=== PATIENT | female | born 1990 | race Caucasian/White ===

== ENCOUNTER 2018-02-24 14:55 | Emergency (ER) | payer OTHER, SELFPAY ==
[2018-02-24 14:56] VITALS: BP 139/85; PULSE 109; RESP 18; TEMP 38.1; O2SAT 97; BMI 27.2
--- NOTE | 2018-02-24 15:53 | EKG12_ITS ---
Test Reason : CP/SOB Blood Pressure : / mmHG Vent. Rate : 084 BPM Atrial Rate : 084 BPM P-R Int : 130 ms QRS Dur : 080 ms QT Int : 378 ms P-R-T Axes : 071 037 019 degrees QTc Int : 446 ms Normal sinus rhythm Nonspecific T wave abnormality Confirmed by CHAPARRITA CHRIS, KEENAN ([id number]), editor & co founder AMOL ZHONG ([id number] on 02/27/2018 2:21:28 PM Referred By: Isidro Ferguson Confirmed By:KEENAN CHEATHAM MD
[2018-02-24] MEDS: 0.9% Normal Saline 1,000 ML 1000 ML IV (16:07)
[2018-02-24] MEDS: Ondansetron 4 MG/2 ML Vial IV (16:07)
[2018-02-24] MEDS: Ketorolac 30 MG/ML Syringe IV (16:07)
[2018-02-24 16:10] VITALS: PULSE 90; RESP 15; O2SAT 95
[2018-02-24 16:11] VITALS: O2SAT 95
--- NOTE | 2018-02-24 16:15 | RAD_ITS ---
STUDY: X-RAY CHEST REASON FOR EXAM: Female, 27 years old. Shortness of breath. TECHNIQUE: PA and lateral views of the chest. COMPARISON: None. FINDINGS: The lungs are clear and expanded. There is no demonstrated pleural abnormality. Normal size heart. Normal mediastinum and tiffanie. Normal visualized pulmonary arteries. Normal visualized aortic arch and descending thoracic aorta. Normal visualized thoracic spine. Normal visualized ribs, clavicles, and shoulders. There is no demonstrated abnormality of the visualized soft tissue structures of the upper abdomen. RAD/Chest PA and Lateral IMPRESSION: Normal x-ray examination of the chest. Electronically Signed: Rad Tinajero DO at 16:30 EDT Tel [phone], Service support ,
[2018-02-24 16:27] LABS: Absolute Lymphocyte Count 1.27 X10^3/ul (0.83-4.51); Absolute Neutrophil Count 11.5 X10^3/uL (2.0-7.7); Basophil# 0.01 X10^3/uL; Basophil% 0.1 % (0-1); Eosinophil# 0.04 X10^3/uL; Eosinophils% 0.3 % (0-5); Hematocrit 41.3 % (37-47); Hemoglobin 13.4 g/dl (12.0-15.0); Lymphocyte # 1.27 X10^3/ul (4.0); Lymphocyte % 9.1 % (19-41); Mean Corp Hgb Conc 32.4 g/gl (32-36); Mean Corpuscular Hgb 33.2 pg (27.0-32.0); Mean Corpuscular Volume 102.2 fL (81-99); Mean Platelet Vol. 10.6 fl (6.2-12.0); Monocyte# 1.12 X10^3/uL; Neutrophil % 82.4 % (47-70); Platelet Count 162 K/mm3 (150-450); RBC Distribution Width CV 12.2 % (11.6-14.6); RBC Distribution Width SD 45.8 fl (35.1-43.9); Red Blood Count 4.04 M/mm3 (4.2-5.4)
[2018-02-24 16:28] LABS: POSITIVE COUNT NO; POSITIVE DIFFERENTIAL NO; POSITIVE MORPHOLOGY NO
[2018-02-24 16:46] LABS: ALB/GLOB Ratio 1.1 RATIO (0.9-2.4); AST(SGOT) 11 U/L (15-37); Alanine Aminotransfer ALT/SGPT 14 U/L (13-56); Albumin, Serum 4.1 g/dL (3.2-5.0); Alkaline Phosphatase 45 U/L (45-117); Anion Gap 5 (5-15); BUN 16 mg/dL (7-18); BUN/Creat Ratio 17.5 RATIO (10-20); Calcium,Total 8.5 mg/dL (8.5-10.1); Chloride 108 mmol/L (98-107); Creatinine, Serum 0.91 mg/dL (0.55-1.02); EST Glomerular Filtration Rate 78 mL/min (>60); Est Glom Filt Rate - Afr Amer 95 mL/min (>60); Estimated Creatinine Clearance 86.93 ml/min; Globulin 3.6 g/dL (2.2-4.2); Glucose 103 mg/dL (74-106); Lipase 149 U/L (73-393); Protein, Total 7.7 g/dL (6.4-8.2); Sodium Level 141 mmol/L (136-145)
[2018-02-24 17:48] LABS: Red Blood Cells-Urine 0 SEEN /hpf (0-5)
[2018-02-24 17:51] LABS: Color, Urine Yellow (Yellow); Glucose, Dipstick 250 mg/dl (Normal); Ketone-Dipstick 5 mg/dl (Negative); Leukocyte Esterase-Dipstick Negative /ul (Negative); Nitrite-Dipstick Negative (Negative); Occult Blood-Urine 150 /ul (Negative); Protein-Dipstick 15 mg/dl (Negative); Specific Gravity, Urine 1.025 (1.002-1.030); Urine Bilirubin Dipstick Negative (Negative); Urine Clarity Sl. Cloudy (Clear); Urine Urobilinogen Normal (Normal)
[2018-02-24 17:55] LABS: Internal QC Validated? YES +Cl - CLEAR BKGD; Pregnancy, Urine Negative Negative
[2018-02-24 18:09] LABS: D-Dimer Quantitative (DVT/PE) < 0.27 FEU/ug/m (0.27-0.49)
[2018-02-24 18:14] LABS: Squamous Epithelial Cells - UA 5-10 SEEN /hpf (5-10)
[2018-02-24 18:15] LABS: Bacteria RARE /hpf (None Seen); Mucous, Urine 1+ /hpf (<or=2+); White Blood Cells 0-5 SEEN /hpf (0-5)
[2018-02-24 21:06] LABS: Color, Urine Yellow (Yellow); Glucose, Dipstick 100 mg/dl (Normal); Ketone-Dipstick 5 mg/dl (Negative); Leukocyte Esterase-Dipstick 25 /ul (Negative); Nitrite-Dipstick Negative (Negative); Occult Blood-Urine 50 /ul (Negative); Protein-Dipstick 30 mg/dl (Negative); Specific Gravity, Urine 1.025 (1.002-1.030); Urine Bilirubin Dipstick Negative (Negative); Urine Clarity Sl. Cloudy (Clear); Urine Urobilinogen 1 mg/dl (Normal)
[2018-02-24 21:18] LABS: Red Blood Cells-Urine 0-5 SEEN /hpf (0-5); Squamous Epithelial Cells - UA 0-5 SEEN /hpf (5-10); White Blood Cells 5-10 SEEN /hpf (0-5)
[2018-02-24 21:19] LABS: Bacteria RARE /hpf (None Seen); Mucous, Urine RARE /hpf (<or=2+)
--- NOTE | 2018-02-25 00:46 | ED.RN ---
please see computer down time charting from [id number] to [id number]
--- NOTE | 2018-02-25 01:09 | ED.VISSUMM ---
- ER Visit Summary Date of Service: 02/25/18 Chief Complaint: Shortness of breath History of Present Illness: The patient is a 27 F who states that she feels like she cannot catch her breath. She woke at approximately 0900 hours. The time she had a slight headache and a bit of a sore throat. She went back to sleep when she woke she had a sharp pain that was sharp on the left side of her chest. She states that her headache and sore throat felt better but her throat felt more swollen now. She states she feels better laying down. She notes nausea upon arrival in the emergency department. She tried an inhaler that she had at home after a bout of bronchitis in the past which did not help. No reported fevers. She takes Lexapro for depression. She is a smoker. She denies any urinary symptoms. Physical Examination: Temperature 100.5 in triage. Oral temperature taken by physician is 99.1. Heart rate 109 respiratory rate of 18 pulse ox is 97% on room air. Blood pressure 139/85 Gen: Well-nourished well-developed patient clinically appears well Head: Normocephalic atraumatic Eyes: Perrl EOMI ENT: TMs clear clear rhinorrhea moist mucous membranes no oral pharyngeal erythema Neck: Supple no lymphadenopathy no JVD nontender CVS: Regular rate rhythm no murmurs normal S1-S2 Respiratory: No distress clear to auscultation bilaterally mild left anterior chest wall tenderness Abdomen: Soft nontender nondistended normal bowel sounds no masses Back: Nontender no CVA tenderness Extremity: Nontender no edema Skin: Normal color no rash Neuro: alert orientated ?3 CN II-XII intact normal strength sensation reflexes gait cerebellar Psych: Normal affect normal mood Test Results: White count of 14 with 82.4 neutrophils. Influenza negative. Chemistries liver negative. D-dimer negative troponin negative. test negative. EKG sinus at a rate of 84. Chest x-ray negative. Patient provided an initial urine specimen. When I reviewed this the initial specimen was essentially negative. Gross examination shows it to be extremely cloudy almost Tuesday. Gave the patient a liter of fluids and asked to repeat the urine. When I did this the urine was significantly better at 5-10 white cells and rare bacteria. Nitrate positive and blood positive. I have asked for a culture. I am going to place the patient on Keflex. I think a lot of her symptoms are viral in nature. Given the urine discrepancies is reasonable to cover her. Return if worsening. Impression: 1. Viral syndrome 2. Urinary tract infection This note was generated with [employer] dictation software. It may contain incorrect words, spelling, and punctuation that were not noted in review of the chart prior to signing ED Disposition - Plan for ED Patient: Disposition: Home or Assisted Living Chief Complaint: Shortness of Breath Referrals: Tiana Crenshaw MD [Primary Care Provider] -
== END 2018-02-24 22:30 | disposition home or self-care (01) ==
PROVIDERS: Emergency Provider Emergency Medicine; Family Provider Internal Medicine; PCP Internal Medicine
DX: B34.9 Viral infection, unspecified (principal); N39.0 Urinary tract infection, site not specified; R06.02 Shortness of breath; J02.9 Acute pharyngitis, unspecified; R51 Headache; F32.9 Major depressive disorder, single episode, unspecified; F17.210 Nicotine dependence, cigarettes, uncomplicated; Z79.899 Other long term (current) drug therapy
CPT/HCPCS: 71046; 80053; 81001; 81025; 83690; 84484; 85025; 85379; 87086; 87088; 87804; 93005; 96374; 96375; 99282; 99285; J7030; A4216; J2405

== ENCOUNTER → 2018-02-28 14:25 | Outpatient (CLI) | payer OTHER, SELFPAY ==
[2018-02-28 14:47] LABS: ALB/GLOB Ratio 1.1 RATIO (0.9-2.4); AST(SGOT) 14 U/L (15-37); Alanine Aminotransfer ALT/SGPT 25 U/L (13-56); Albumin, Serum 3.7 g/dL (3.2-5.0); Alkaline Phosphatase 41 U/L (45-117); Anion Gap 7 (5-15); BUN 11 mg/dL (7-18); BUN/Creat Ratio 14.5 RATIO (10-20); Calcium,Total 8.9 mg/dL (8.5-10.1); Chloride 106 mmol/L (98-107); Creatinine, Serum 0.76 mg/dL (0.55-1.02); EST Glomerular Filtration Rate 96 mL/min (>60); Est Glom Filt Rate - Afr Amer 117 mL/min (>60); Globulin 3.5 g/dL (2.2-4.2); Glucose 78 mg/dL (74-106); Potassium 3.8 mmol/L (3.5-5.1); Protein, Total 7.2 g/dL (6.4-8.2); Sodium Level 141 mmol/L (136-145)
== END ==
PROVIDERS: Family Provider Internal Medicine; PCP Internal Medicine; Visit Provider Internal Medicine
DX: B34.9 Viral infection, unspecified (principal); E86.0 Dehydration; Z87.440 Personal history of urinary (tract) infections
CPT/HCPCS: 80053

== ENCOUNTER 2018-05-24 12:47 | Emergency (ER) | payer OTHER, SELFPAY ==
[2018-05-24 12:48] VITALS: BP 149/83; PULSE 111; RESP 15; TEMP 36.9; O2SAT 100; BMI 25.6
--- NOTE | 2018-05-24 13:07 | ED.VISSUMM ---
- ER Visit Summary Date of Service: 05/24/18 Chief Complaint: Right leg numbness History of Present Illness: The patient is a 27 F who states that she went to bed last night feeling fine. When she woke up this morning she felt like her distal right leg and foot was asleep. She states it was rather pins and needles. But as she walked down the hallway she noted that it felt like her foot was dropping behind her. She states now just feels numb. She states that it is all the way around the leg all the way around the foot starting just below the knee. Typically sleeps on her back. She does not recall sleeping in abnormal position last night. Physical Examination: Afebrile vital signs are stable Gen: Well-nourished well-developed Head: Normocephalic atraumatic Eyes: Perrl EOMI ENT: TMs clear no rhinorrhea moist mucous membranes Neck: Supple no lymphadenopathy no JVD nontender CVS: Regular rate rhythm no murmurs normal S1-S2 Respiratory: No distress clear to auscultation bilaterally chest nontender Abdomen: Soft nontender nondistended normal bowel sounds no masses Back: Nontender Extremity: Nontender no edema Skin: Normal color no rashr Psych: Normal affect normal mood Neuro: alert orientated ?3 CN II-XII intact patient reports decreased sensation of the right leg and foot. She does feel sharp and pressure. She is able to dorsi and plantar flex. Initially she is not able to show me anything but when I point out that she is actually doing at she is unable to do some of the motion though more weaker than the left. Vasculature appears normal on physical exam Emergency Department Course and Treatment: This most likely is a neurapraxia probably due to the peroneal nerve and should resolve. She is going to wear supportive ankle wear and cane if need be.. She will follow-up with urology if not improving. Impression: 1. Right leg neuropraxia This note was generated with [employer] dictation software. It may contain incorrect words, spelling, and punctuation that were not noted in review of the chart prior to signing ED Disposition - Plan for ED Patient: Disposition: Home or Assisted Living Chief Complaint: Numb/Ting Instructions: ED Palsy Peroneal Nerve Referrals: Wang Sewell MD [STAFF PHYSICIAN] - 1 Week if not improving
[2018-05-24 13:16] VITALS: BP 119/91; RESP 17
[2018-05-24 13:17] VITALS: BP 119/91; RESP 17
== END 2018-05-24 13:31 | disposition home or self-care (01) ==
PROVIDERS: Emergency Provider Emergency Medicine; Family Provider Internal Medicine; PCP Internal Medicine
DX: S84.91XA Injury of unspecified nerve at lower leg level, right leg, initial encounter (principal); X58.XXXA Exposure to other specified factors, initial encounter; Y93.9 Activity, unspecified; Y92.9 Unspecified place or not applicable; Y99.9 Unspecified external cause status; F32.9 Major depressive disorder, single episode, unspecified; F41.9 Anxiety disorder, unspecified; Z79.899 Other long term (current) drug therapy
CPT/HCPCS: 99282

== ENCOUNTER → 2018-10-17 20:07 | Outpatient (CLI) | payer OTHER, SELFPAY | LOC: SL 20:07 | PROVIDERS: Family Provider Family Medicine; PCP Family Medicine; Visit Provider Family Medicine | DX: G47.10 Hypersomnia, unspecified (principal) | CPT/HCPCS: 95810 ==

== ENCOUNTER 2020-04-24 09:00 | Outpatient (RCR) | payer OTHER, SELFPAY ==
--- NOTE | 2020-04-24 09:03 | BH.SGPN.GN ---
Behaviors/Verbalizations/Mental Status: [] Client alert and oriented, casually dressed. Eye contact good. Motor activity appropriate. Speech within normal limits. Affect congruent, mood depressed, anxious. Thoughts linear, logical, no signs of hallucinations or delusions. Reviewed client?s symptom tracker, no risk for suicidal ideation, plan, or intent as of 04/24/20. Client Response/Progress/Benefit: []Client first day in IOP program, remained attentive and was willing to share with the group. Reports feeling anxious today as she has not previously done group counseling and is nervous about what to expect. Notes that this is a current stressor for her but that she knows continuing to ignore self-care and not address her mental health needs with become an even greater source of stress long-term. Client receptive of and appeared to benefit from support and encouragement from the group. Did well to identify a current mental health win which included stepping outside her comfort zone and asking for help via seeking mental health treatment. Noted goals for IOP treatment include improving self-care and self-confidence. Progress not noted as client new to program. Will continue IOP tx to prevent decompensation, improve mood stability, and promote healthy mental health sx management. Narrative Note: []
--- NOTE | 2020-04-24 10:17 | BH.SGPN.GN ---
Behaviors/Verbalizations/Mental Status: []Eye contact is good. Motor activity is appropriate. Appearance is neat and clean. Speech is Appropriate. Mood is anxious. Affect is unable to gather due to wearing a mask for COIVD-19 protocol. Thoughts are linear and logical. No evidence of psychosis. Client Response/Progress/Benefit: []Client was passive during discussion, taking notes. Client more engaged during activity and was laughing. Client listened as peers worked on defining what goals are. Brainstormed with the group the benefits of goal setting which included: increased motivation, sense of accomplishment, increased confidence, growth, and purpose. Client attentive as the group discussed the barriers that keep people from either setting goals are following through with goals. Attentive during psychoeducation on SMART goals. Engaged in activity and did well to provide ideas and listen to peers. Client appeared to benefit from learning the mental health benefits of setting goals that are SMART. Will continue IOP tx to prevent decompensation, improve daily functioning, and increase healthy coping skills. Narrative Note: []
--- NOTE | 2020-04-30 09:53 | BH.NA ---
Physical Data - Vital Signs Pulse Rate: 76 Blood Pressure: 118/62 - Height/Weight Height: 1.68 m - stated Weight:: 73.936 kg - Actual Weight in Pounds: 163.0 lbs Nutritional History - Appetite Nutritional Instructions:: If client shows signs of a swallowing problem, weight change of 10 pounds or more in the last month, or is on a diabetic diet, the physician will review and request a dietitian consult, as appropriate. All unintentional weight loss will be referred to the physician for decision on need for dietitian consult. Describe your appetite:: Poor Have you noticed a change in your eating habits lately?: Yes - Client states that she has had a decreased appetite with recent weight loss Functional Assessment - Sleep Pattern Describe any problems with sleeping: Client states she has been getting approximately 8-10 hours of sleep nightly that is broken. - Activities Motor Activity:: Functional Sensory/Communication Assess - Communication Problems Do you have difficulty understanding what people are saying?: No Medical Problems/History - Respiratory Conditions Respiratory: Other (See comments) - Client states that she had a sleep apnea test approx 2yrs ago and has sleep apnea but does not need a CPAP - Additional History Additional comments:: Client states that she has a h/o Depression Surgical History - Surgical History Have you had any surgeries? If so, list type and date:: No Substance Abuse - Substance Abuse Please describe substance abuse in the last 30 days:: Client states that she drinks 1-3 drinks approximately 1-3 times/week consisting of either beer or wine. Client states past tobacco use- smoked 1/2PPD [id number], quit approx 1.5yrs ago but vaped and quit the vape about 6 weeks ago. Client denies past or current substance use. Client states consumes caffiene approximately once every couple of days, consisting of energy drinks. Mental Status Summary - Mental Status Significant Findings/Observations on Appearance and Mood:: Client is alert and oriented x4. Client is casually groomed . Client is cooperative during assessment, makes good eye contact during conversation. Client's speech with normal rate and volume, coherent and spontaneous. Client appears moderately depressed and mildly anxious during assessment. Client appears with some Anhedonia present. Client makes logical associations, normal processing. Client denies delusions and hallucinations, none evident. Client appears with good insight and judgement. Suicide Assessment - Suicidal Ideation Are you currently or have you been suicidal in the past?: Yes - Client denies current SI/HI, states SI in the past. Suicidal Intentional Rating Scale (SIRS): Suicidal thoughts (past) Physician Notification: If Active suicidal thoughts/Will not contract for safety is checked, contact physician and document in the Physician Notification section below. Past Psychiatric History - MH Treatment Hx Past Psychiatric Medications:: Client states has been on past psychiatric medications consisting of; Zoloft, Clonopin, Xanax for flying. Age of first mental health symptoms: Client states she was first diagnosed with mental health disorder at age 14-15yo. Describe (age, circumstance, etc) any past hospitalizations: Client denies any past psychiatric hospitalizations. Current providers for mental health treatment (counselor, psychiatrist, window caser, etc.): [facility] Fall Risk Assessment - Age Age: Less than 60 - Mental Status Mental Status: Willing & able to ask for assistance when needed - Physical Status Physical Status: No problems - Impairments Impairments: None - Elimination Elimination: Continent AND independent - Gait or Balance Gait or Balance: Walks independently - Hx of Falls History of falls in the past 6 months: No known history - Medications/Substances Psychotropics:: Antidepressants Medications/substances used within the past 24 hours or ordered to administer: 1-2 of the medications/substances listed above - Total Score Total Points:: 1 RN Summary of Impressions - Impressions Recommendations: Include psychiatric and medical issues, treatment planning recommendations, and discharge planning needs. Impressions: Psychiatric Issues: Major depressive disorder, recurrent, severe without psychosis; generalized anxiety disorder; bulimia nervosa - Level of Care How do the client's current symptoms and functional deficits support need for this level of care?: Client details onset of current episode, stating her symptoms started worsening in beginning to mid January 2020 when the COVID pandemic started. Client states that some stressors consist of work, the pandemic, and recent break up with her boyfriend. Client states has been having crying spells, Worsening depression and anxiety, feeling nauseated with low energy and motivation. Client has not been to work since 04/23/20. Client states lives alone and with everything that has been going on this increases her anxiety. IOP will promote gains and prevent further decompensation while providing social support and skills training.
--- NOTE | 2020-04-30 10:25 | BH.SGPN.GN ---
Behaviors/Verbalizations/Mental Status: []Client alert and oriented, neatly dressed and groomed. Eye contact good. Motor activity appropriate. Speech within normal limits. Affect unable to gather due to wearing a mask for COVID-19 protocol, mood dysthymic but improved from first session. Thoughts linear, logical, no signs of hallucinations or delusions. Client Response/Progress/Benefit: []Client was an engaged participant throughout group session AEB client contributing to discussion of healthy versus unhealthy coping skills. Client reported ?we learn to carry our load from what we know.? Client shared her ?load? includes daily responsibilities, work, and mental health. Group identified unhealthy coping skills which included; avoidance, isolation, drugs and alcohol, denial, and taking emotions out on others. Group reported people turn to unhealthy skills because of habit and learned behaviors. Client agreed that learning healthy coping skills takes self-awareness and practice. Participated in the activity and discussed the importance of creating a strong foundation of healthy coping skills in order to manage life stressors. Client seemed to benefit from increased awareness of importance of increasing healthy coping skills and consequences of utilizing unhealthy coping skills. Client will continue IOP tx to reduce depressive symptoms, increase use of healthy coping skills, and improve daily functioning. Narrative Note: []
[2020-04-30 13:05] VITALS: BP 118/62; PULSE 76
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
--- NOTE | 2020-04-30 13:59 | BH.DR.ITP ---
Initial Treatment Plan - Patient Information Visit Information: ADMISSION DATE: EXPECTED LOS: 4-6 weeks - Problems/Symptoms Problem #1:: Depression Symptom:: Sadness, hopelessness, worthlessness,fatigue, decreased concentration, fleeting suicidal ideation Problem #2:: Anxiety Symptom:: worry, rumination, panic attacks
--- NOTE | 2020-04-30 15:10 | BH.MDN ---
Multi-Disciplinary Note - Note 45-min Individual Time Started:: 12:15 Date: 04/30/20 Time Stopped:: 13:00
--- NOTE | 2020-05-01 09:03 | BH.SGPN.GN ---
Behaviors/Verbalizations/Mental Status: []Client alert and oriented, neatly dressed and groomed. Eye contact good. Motor activity appropriate. Speech within normal limits. Affect unable to gather due to wearing a mask for COVID-19 protocol, mood euthymic and anxious. Thoughts linear, logical, no signs of hallucinations or delusions. Reviewed client?s symptom tracker, no risk for suicidal ideation, plan, or intent as of 05/01/20. Client Response/Progress/Benefit: []Client responded well to session, attentive and providing input to group discussion. Client reports feeling a little anxious today due to stress related to her [facility] paperwork for work. Client shared she has also been having some ruminating thoughts which reinforce anxiety. Client receptive to group discussion on ways to manage ruminating thoughts and client reported she can reframe her irrational thoughts. Client reported she has been working on her game plan from group which was to practice her coping skills. Client stated she cleaned and spent quality time with her mother this week which was helpful. Client also reported she is excited because client is going to be an aunt soon. Appeared to benefit from connecting with peers and reviewing healthy coping skills. Progress noted in client's use of opposite action. Will continue IOP tx to prevent decompensation, improve work-related functioning, and increase consistent application of coping skills. Narrative Note: []
--- NOTE | 2020-05-01 11:20 | BH.SGPN.GN ---
Behaviors/Verbalizations/Mental Status: []Client alert and oriented, casual in appearance. Eye contact good. Motor activity appropriate. Speech within normal limits. Affect congruent, mood dysthymic, anxious. Thoughts linear, logical, no signs of hallucinations or delusions. Client Response/Progress/Benefit: [] Pt active participant and providing input throughout. Appeared to connect with the discussion reviewing three categories of skills for managing anxiety which included mind-based, body-based, and self-soothing. She worked with the group to provide examples throughout and contributed ideas. Pt described to the group what progressive muscle relaxation is, indicating that this is a skill she has used in the past to help with managing her own anxiety. Pt did well to identify a skill in each mindfulness category she is willing to practice. Identified skills included: body-based: deep breathing, Self-soothing as: meditation, and mind-based: completing puzzles. Pt seemed to benefit from increased awareness of healthy skills to manage anxiety related symptoms and in identifying skills willing to practice outside treatment environment. Progress noted with increased engagement and reported use of positive self-talk to improve overall mood. Client to continue IOP level of care to increase healthy coping skills, continue to promote anxiety management skills, and prevent decompensation. Narrative Note: []
--- NOTE | 2020-05-05 09:05 | BH.SGPN.GN ---
Behaviors/Verbalizations/Mental Status: [] Client alert and oriented, casual dress. Eye contact fair, tearful throughout. Motor activity appropriate. Speech within normal limits, soft. Affect unable to gather due to client wearing a mask for COVID-19 protocol, mood depressed and anxious. Thoughts linear, logical, ruminative in nature, no signs of hallucinations or delusions. Reviewed client?s symptom tracker, no signs of suicidal ideation, plan, or intent as of today. Client Response/Progress/Benefit: [] Pt receptive of session, engaged throughout. Reports feeling scared and confused today today as she recently had a conversation with her ex that resulted in pt experiencing many mixed emotions. Indicated that she had initiated the conversation as she was trying to advocate for herself and ex owed her money. However, as they talked the discussion turned to their past relationship and her ex inquired about ?trying things again?. She noted that this had taken her by surprise and although she knows the relationship was harmful to her mental health, she is struggling with moving on and is considering returning to the relationship. Shared that the emotional toll of this decision led her to lay in bed much of the weekend crying. Receptive of support and encouragement provided by the group on healthy boundary setting. Pt noted that although she had a difficult weekend, she was able to identify positives including using opposite action to go to the store and visit a friend. Pt appeared to benefit from support and structure of the group. Will continue IOP tx to promote more consist mood stability, improve daily functioning, and prevent decompensation. Narrative Note: []
--- NOTE | 2020-05-05 15:11 | BH.MDN ---
Multi-Disciplinary Note - Note 60-min Individual Time Started:: 11:22 Date: 05/06/20 Time Stopped:: 12:15
== END 2020-05-06 23:59 ==
LOC: BHIOP 09:00
PROVIDERS: PCP Family Medicine; Referring Provider Psychiatry & Neurology Psychiatry; Visit Provider Psychiatry & Neurology Psychiatry
DX: F33.2 Major depressive disorder, recurrent severe without psychotic features (principal); F41.1 Generalized anxiety disorder; F50.2 Bulimia nervosa; Z79.899 Other long term (current) drug therapy; Z87.891 Personal history of nicotine dependence; Z62.810 Personal history of physical and sexual abuse in childhood; Z62.811 Personal history of psychological abuse in childhood
CPT/HCPCS: H0035; 90834; 90853

== ENCOUNTER 2020-05-07 09:00 | Outpatient (RCR) | payer OTHER, SELFPAY ==
[2020-05-07 00:38] VITALS: BP 118/62; PULSE 76
--- NOTE | 2020-05-07 09:05 | BH.SGPN.GN ---
Behaviors/Verbalizations/Mental Status: []Client alert and oriented, casual dress. Eye contact good, tearful when processing. Motor activity appropriate. Speech within normal limits. Affect unable to gather due to client wearing a mask for COVID-19 protocol, mood depressed and anxious. Thoughts linear, logical, no signs of hallucinations or delusions. Reviewed client?s symptom tracker, no signs of suicidal ideation, plan, or intent as of today. Client Response/Progress/Benefit: [] Client attentive and openly shared with the group, tearful throughout. Reports feeling guilty today which client attributes to having a friend disagree with her choice to begin speaking to her ex-boyfriend again. Shared that her friend set boundaries with her as a result which had been difficult for client to accept. Discussed knowing that her friend needs space and that she is trying to respect that which is progress as she would typically try to ?fix? things right away. Did well to identify this as a personal mental health win. Additional win expressed as reanalyzing her own personal boundaries and discussing with her ex that she is not interested in pursuing a relationship at this time as she would like to focus on her own mental health. Receptive of and appeared to benefit from supportive feedback as well as identifying her own personal wins. Will continue IOP tx to prevent decompensation, improve mood stability, and promote healthy mental health sx management. Narrative Note: []
--- NOTE | 2020-05-07 10:22 | BH.SGPN.GN ---
Behaviors/Verbalizations/Mental Status: []Client alert and oriented, casual dress, hygiene tended to. Eye contact good. Motor activity appropriate. Speech within normal limits. Affect unable to gather due to wearing a mask for COVID-19 protocol, mood dysthymic-tearful at times. Thoughts linear, logical, no signs of hallucinations or delusions. Client Response/Progress/Benefit: []Client responded well to session, attentive and occasionally contributing to discussion. Client worked cooperatively with the group to identify factors that contributed to how we define ourselves which included: upbringing, societal expectations, our abilities, accomplishments, failures, education, and how others view us. Client reported she has experienced mental health discrimination before and stigma. Client shared examples of stigma related comments she has heard in the past. Client worked with group to identify that stigma can keep people from: connecting with others, being open with others, going after a job or goals, and asking for help. Client seemed to benefit from increased awareness of how mental health stigma can impact progress. Client to continue IOP tx prevent decompensation of depressive symptoms, improve daily functioning, and increase use of healthy coping skills. Narrative Note: []
--- NOTE | 2020-05-07 11:18 | BH.SGPN.GN ---
Behaviors/Verbalizations/Mental Status: []Pt eye contact fair, casually dressed, motor activity appropriate, speech normal rate and tone. Mood dysthymic and anxious. Affect could not be assessed due to patient wearing a mask because of COVID-19 precautions. thoughts linear and intact, no evidence of delusions or hallucinations. Client Response/Progress/Benefit: []Client responded well to session AEB listening and taking notes, as well as providing input at times during session. Engaged in activity about facts and statistics of mental illness. Group connected with the mental health statistics, recognizing the prevalence of mental health. Group brainstormed strategies to combat social and perceived stigma which included: educating others and themselves, no longer using negative language about mental illness, being open about mental health and not using deflection like humor or joking to minimize symptoms. Client stated she would benefit from setting healthy boundaries and putting her mental health first in order to reduce perceived mental health stigma. Appeared to benefit from increasing awareness of strategies to combat stigma. Will continue IOP tx to reduce anxiety, decrease co-dependency, and prevent decompensation. Narrative Note: []
--- NOTE | 2020-05-08 10:19 | BH.SGPN.GN ---
Behaviors/Verbalizations/Mental Status: []Client alert and orient. Appearance casual and appropriately groomed. Speech an appropriate rate and tone. Motor activity WNL. Mood euthymic, affect unable to gather due to client wearing a mask for COVID-19 protocol. No evidence of delusion or hallucinations.? Client Response/Progress/Benefit: []Client responded well to session, attentive and contributing to discussion. Group discussed benefits of healthy communications on mental health which included: getting help, better relationships, less misinterpretations, and improved emotional regulation. Group additionally discussed potential barriers to communication including: shutting down, tone of voice, assumptions, yelling, passive aggressive behaviors, and poor emotional regulation. Client stated ?I used to communicate with behaviors all the time.? Client shared some examples jokingly, but client also reported that this way of communicating was not helpful to her or her relationships. Attentive during psychoeducation on the four communication styles. Client self-reports identifying most with the passive and passive-aggressive communication styles. Client shared this has impacted client?s relationships and caused frustration. Progress noted in increased insight into personal communication styles and barriers. Client will continue in IOP tx further improve mood stability, decrease depressive symptoms, and decrease co-dependence. Narrative Note: []
--- NOTE | 2020-05-09 09:00 | BH.SGPN.GN ---
Behaviors/Verbalizations/Mental Status: [] Client alert and oriented, casual dress. Eye contact good. Motor activity appropriate. Speech within normal limits. Affect unable to gather due to client wearing a mask for COVID-19 protocol, mood euthymic and anxious. Thoughts linear, logical, no signs of hallucinations or delusions. Reviewed client?s symptom tracker, no signs of suicidal ideation, plan, or intent as of today. Client Response/Progress/Benefit: [] Pt responded well to session, providing feedback to peers and actively engaged throughout. Reports feeling tired today as she has been struggling with managing her boundaries since an ex-boyfriend reentered her life. Expressed however that yesterday she took time to have a ?self-care day? and reflect on what she truly needs. Indicated going kayaking and enjoying nature which felt nice. Identified this as a mental health win. Additional win noted as challenging herself to respect her friends needs for boundaries rather than getting upset and trying to push them. Pt reports this as progress and indicated an overall improvement in her mood as well. Appeared to benefit from the support and encouragement provided by the group. Will continue IOP tx to promote more consist mood stability, improve daily functioning, and reduce intensity of symptoms. Narrative Note: []
--- NOTE | 2020-05-14 09:03 | BH.SGPN.GN ---
Behaviors/Verbalizations/Mental Status: []Client alert and oriented, casual dress, hygiene tended to. Eye contact good. Motor activity appropriate. Speech within normal limits. Affect unable to gather due to wearing a mask for COVID protocol, mood anxious and euthymic. Thoughts linear, logical, no signs of hallucinations or delusions. Reviewed client?s symptom tracker, no signs of suicidal ideation, plan, or intent as of today. Client Response/Progress/Benefit: []Client responded well to session, providing supportive statements to peers. Client reports feeling overwhelmed today. Client shared she had a good week since the last time she attended IOP, but a lot happened. Client reported she was able to have a conversation with her supports using assertive communication and she has been working on maintaining boundaries with her ex-boyfriend. Client stated it was hard for her to maintain boundaries with her ex-boyfriend because I've been waiting for him to apologize and come back, but I know I need to work on me now. Client receptive to discussion of how she can continue to set boundaries and focus on her goals. Appeared to benefit from reflecting on gains and reinforcing boundaries. Will continue IOP tx to promote use of healthy coping skills and further reduce intensity of symptoms. Narrative Note: []
--- NOTE | 2020-05-14 15:13 | BH.MDN ---
Multi-Disciplinary Note - Note 45-min Individual Date: 05/14/20
--- NOTE | 2020-05-15 10:10 | BH.SGPN.GN ---
Behaviors/Verbalizations/Mental Status: []Client alert and oriented, casually dressed and appropriately groomed. Eye contact fair to good. Motor activity appropriate. Speech WNL. Affect congruent, mood euthymic. Thoughts linear, logical, no signs of hallucinations or delusions. Client Response/Progress/Benefit: []Client attentive and providing input throughout. Appearing to connect during discussion on the quote and how distorted thought patterns can reinforce mental health symptoms, negatively impact self-esteem, and impact personal relationships. Client engaged throughout the discussion on different types of thought distortions and noted that she connects with all or nothing thinking, mental filter, and mind-reading. Provided an example of recently struggling with the thought ?he didn?t text me so it must mean he?s going to break up with me? in regard and identified this as mind-reading as well as predicting the future. Appeared to benefit from increasing awareness of cognitive distortions and how they can impact emotions and behaviors. Progress noted in client increased application of self-reflection skills and positive self-talk, however continues to struggle with boundary setting which continues to impede consistent progress. Will continue IOP tx to prevent decompensation, improve healthy skill application, and increase mood stability. Narrative Note: []
--- NOTE | 2020-05-15 11:12 | BH.SGPN.GN ---
Behaviors/Verbalizations/Mental Status: []Client alert and oriented, neatly dressed and groomed. Eye contact good. Motor activity appropriate. Speech within normal limits. Affect unable to gather due to wearing a mask for COVID-19 protocol, mood euthymic. Thoughts linear, logical, no signs of hallucinations or delusions. Client Response/Progress/Benefit: []Client active participant as evidenced by client providing input throughout session, taking notes, and completed worksheet. Client engaged in discussion about discussing additional cognitive distortions. Client shared examples of distorted thoughts she has had such as it?s my responsibility to make them happy and fix them.? Client self-identified as co-dependent and shared that because of this client often personalizes. Client engaged in discussion about how to reframe distorted thoughts to a more rational statement. Client participated in the group activity of practicing thought challenging. Client and her small group successfully challenge two negative thoughts and reframed them using the strategies discussed. Client selected the strategy of T.H.I.N.K to help client challenge negative thinking. Client seemed to benefit from practicing identifying and reframing distorted thoughts. Client to continue IOP level of care to increase healthy coping, improve mood stability, and improve self-confidence to decrease co-dependence. Narrative Note: []
--- NOTE | 2020-05-16 10:03 | BH.SGPN.GN ---
Behaviors/Verbalizations/Mental Status: []Client alert and oriented, casual dress, hygiene tended to. Eye contact fair. Motor activity appropriate. Speech within normal limits. Affect could not be assessed due to pt wearing a face mask as precaution against coronavirus. mood depressed. Thoughts linear, logical, no signs of hallucinations or delusions. Client Response/Progress/Benefit: []Pt passive participant AEB pt not providing input during discussion however appeared to listen attentively to peers and taking notes throughout. Pt connected with quote reporting it is challenging to set boundaries because doesn't want to let others down. Group identified boundaries can impact the following: how much someone takes advantage of you, either bring people closer or push people away, keep us safe, reduce the risk of peer pressure, impact positive or negative self-worth. Listened attentively to group discussion about different types of boundaries. Progress noted with pt recently setting boundaries with unhealthy relationship. Pt to continue IOP to increase healthy coping, improve self-esteem, and prevent decompensation. Narrative Note: []
--- NOTE | 2020-05-16 11:05 | BH.SGPN.GN ---
Behaviors/Verbalizations/Mental Status: [] Client alert and oriented, casually dressed. Eye contact poor to fair, often tearful and avoidant. Motor activity appropriate. Speech within normal limits, less input that usual, quiet. Affect constricted, mood depressed. Thoughts linear, logical, no signs of hallucinations or delusions. Client Response/Progress/Benefit: [] Client responded well to session, contributing minimal verbal input to discussion, though was taking notes throughout. Client indicated that boundaries have traditionally been difficult for her and was tearful throughout. Remained attentive during psychoeducation on the boundary setting styles and nodded as fellow participants discussed areas in which they have struggled with each style. Declined to share her own personal boundary setting style with group, however completed the worksheet identifying a skill to improve boundaries over the weekend. Progress noted in client?s improved insight regarding how current boundaries are impacting her mental health, however continues to struggle with self-esteem and distorted thoughts preventing establishment of healthier boundaries. Will continue IOP tx to promote use of healthy coping skills, increase mood stability, and improve functioning. Narrative Note: []
--- NOTE | 2020-05-16 15:14 | BH.MDN ---
Multi-Disciplinary Note - Note 30-min Individual Time Started:: 09:25 Date: 05/16/20 Time Stopped:: 10:00
--- NOTE | 2020-05-20 09:05 | BH.SGPN.GN ---
Behaviors/Verbalizations/Mental Status: [] Eye contact is good. Motor activity is appropriate. Appearance is casual. Speech is Appropriate. Mood is depressed. Affect is flat. Thoughts are linear and logical. No evidence of psychosis. Reviewed daily check in sheet and pt reports 2/5 for suicidal thoughts and 0/5 for intent. Client Response/Progress/Benefit: [] Pt participated when prompted. Tearful. Shared that she has been struggling since last week and feels that she has taken steps back. Notes regression mainly related to continued challenges with her ex. Frustrated. Hopeless. Lonely. Feels like she is back at square one. Group provided support and challenged her thinking. Pointing out her progress and normalized grief reactions related to loss of relationship. Group also provided feedback and suggestions to help with current emotions. Pt responded well to feedback. Limited progress due to continued relationship conflicts which impacts mood. Struggling to utilize skills. Will continue in IOP to maintain safety, prevent decompensation, and improve functioning to return to work. Narrative Note: []
--- NOTE | 2020-05-20 11:17 | BH.SGPN.GN ---
Behaviors/Verbalizations/Mental Status: [] Client alert and oriented, casually dressed and groomed. Eye contact good. Motor activity appropriate. Speech within normal limits. Affect unable to gather due to wearing a mask for COVID-19 protocol, mood dysthymic. Thoughts linear, logical, no signs of hallucinations or delusions. Client Response/Progress/Benefit: [] Pt engaged in session AEB listening attentively to others and providing some input throughout, though remaining more passive than in previous groups. Pt did well to engage during the activity in which participants were challenged to eliminate various items through group census. Actively contributing during processing discussion identifying conflict resolution skills used to complete the task, as well as additional skills for better managing conflict in daily life. Pt shared that getting creative with their problem-solving skills was a factor contributing to group?s ability to succeed. Appeared to benefit from psychoeducation regarding impact of conflict on mental health and relationships and working with group to identify healthy skills for conflict resolution. Pt expressed that she has struggled with avoidance in the workplace and accommodating in her personal life, which has led to not getting her own needs met in the past. Indicated wanting to focus on improving her ability to prioritize what?s important as a conflict resolution skill she could use this week. Progress continues to be limited as pt struggles with skill application and maintaining boundaries which continue to reinforce mental health sx. Will continue IOP tx to promote use of healthy coping skills, continue to improve boundaries, and improve mood stability. Narrative Note: []
--- NOTE | 2020-05-20 11:59 | BH.MDN ---
Multi-Disciplinary Note - Note 45-min Individual Time Started:: 09:16 Date: 05/20/20 Purpose of session/treatment goals addressed:: Purpose of session was to assess pt's current suicidal lethality due to pt indicating a 2/5 on daily symptom tracker for suicidal thoughts. Other topics included assisting pt with managing current stressor of relationship issue. Eye Contact:: Fair Motor Activity:: Restless Appearance:: Casual Speech:: Appropriate Mood:: Anxious, Depressed Affect:: Labile Thoughts:: Logical, Circular, No evidence of hallucinations/delusions noted Staff Interventions:: Therapist used open ended questions to elicit pt's current symptoms and stressors. Therapist assessed pt's suicidal lethality. Therapist discussed importance of reducing access to lethal means. Therapist provided support by validating pt's emtions. Processed setback of laying in bed most of the weekend. Gently challenged pt's current coping mechanisms, helping pt connect consequences of unhealthy coping. Collaborated with pt to establish a plan for the rest of today. Client Response:: Pt reported she struggled all weekend by falling into depression hole. Pt stated she laid in her bed all weekend becuse didn't want to be a burden to her family by going to stay with them. Pt reported yesterday she did go over to her mom's house which she recognized was helpful to get out of her house. Pt stated she has been having suicidal thoughts since ending the relationship with her ex for a second time last week. Pt reported she has suicidal thoughts daily for the last 4 days. Pt stated she has thought about hanging herself off of her neighbors kira. Pt reported she does not have any intention to carry that thought out or any plan to do so. Pt stated she doesn't really want to , just doesn't want to feel sad anymore. Pt reported she is just exhausted and is tired of feeling this way. Pt receptive to therapist assisting her with challenging her negative and distorted thoughts. Pt recognizes she has made progress since starting the program, but is having trouble identifying that progress now. Pt stated today she will go hang out with her mom for a little then she will be taking her best friend's daughter to a volleyball game. pt reported despite not wanting to do anything she will do those things because knows it is better than sleeping. Pt stated she would be at [facility] tomorrow. Risks/Concerns:: Pt endorsed suicidal thoughts with an idea of how she would kill herself. Denies suicidal intention or plan. Pt denied having access to a gun or rope. Pt stated she can keep herself safe. Agreeable to go to the nearest emergency room or call 911 if feels unable to maintain safety. Pt stated she will be staying the night with her mom. Does not present as imminent risk to self or others. Progress Toward Goals/Plan:: Decompensation noted as evidenced by pt reporting spending all weekend in her bed due to feeling sad about a relationship ending. Last week pt showed progression with setting a boundary, but now feeling overwhelmed with her emotions. Pt continues to struggle with independence, needs another person to make her feel worthy. Pt to continue IOP to increase healthy coping, challenge distorted thoughts, maintain healthy boundaries, and prevent decompensation. Time Stopped:: 10:04
--- NOTE | 2020-05-21 09:00 | BH.SGPN.GN ---
Behaviors/Verbalizations/Mental Status: []Client alert and oriented, casual dress, hygiene tended to. Eye contact fair. Motor activity appropriate. Speech within normal limits. Affect could not be assessed due to pt wearing a face mask as precaution against coronavirus. mood depressed and anxious. Thoughts linear, logical, no signs of hallucinations or delusions. Reviewed client?s symptom tracker, pt denies current suicidal thoughts or intention to date. Client Response/Progress/Benefit: []Pt was an active participant in group discussion, providing input and openly processing thoughts and emotions with the group. Pt stated her gameplan yesterday was to keep moving so she didn't fall back into depression hole. Pt reported she hung out with her mom majority of the day then took her friends daughter to a volleyball game. Pt stated although she didn't want to do anything she knows it was in her best interest to stay busy. Pt reported she is struggling with brain fog so having hard time processing and making decisions. Pt continues to report stress about recent breakup with her ex-boyfriend. Pt reported she knows the boundary she set with her ex was necessary, but continues to have what if thoughts. Pt provided feedback and support to fellow group members. Progress has decompensated since pt had let her ex-boyfriend back into her life and then the relationship ended for a second time last week. Pt seemed to benefit from support from peers. Pt to continue IOP to decrease depressive symptoms, increase utilization of healthy coping skills, and prevent decompensation. Narrative Note: []
--- NOTE | 2020-05-21 10:08 | BH.SGPN.GN ---
Behaviors/Verbalizations/Mental Status: []Client alert and oriented, casual appearance. Eye contact good. Motor activity appropriate. Speech within normal limits. Affect unable to gather due to wearing a mask for COVID, mood dysthymic. Thoughts linear, logical, no signs of hallucinations or delusions. Client Response/Progress/Benefit: []Client responded well to session, contributing to discussion and engaged during the activity. Attentive during discussion on the quote. Group identified benefits to change included: improved mental health, independence, clearer thinking, and getting out of unhealthy situations. Worked with the group to identify barriers to change, which included: guilt, sense of obligation to others, discomfort, fear of the unknown, and negative thinking. Client participated along with group in activity where they identified and discussed the emotions related to change. Client shared just thinking about the topic of change makes client anxious. Client shared ?it?s because it makes me feel so uncomfortable.? However, client acknowledged that not all change is bad and that some changes are exciting. Benefited from increased awareness and understanding of emotions, benefits, and barriers related to change. Will continue IOP tx to prevent decompensation of depressive symptoms and improve mood stability. Narrative Note: []
--- NOTE | 2020-05-21 11:10 | BH.SGPN.GN ---
Behaviors/Verbalizations/Mental Status: []Client alert and oriented, casually dressed and groomed. Eye contact good. Motor activity appropriate. Speech within normal limits. Affect unable to gather due to wearing a mask for COVID-19 protocol, mood depressed. Thoughts linear, logical, no signs of hallucinations or delusions. Client Response/Progress/Benefit: []Client was a mostly active participant, contributing to discussion and listening attentively to peers. Client participated during discussion on the change process as well as weighing the pros and cons associated with change. She shared specific emotions one might experience throughout the process of change, indicating anxiety and grief as emotions common for her with change. Client benefited from learning to work through pros/cons of personal changes through use of decisional balance sheet. Identified a change she wants to make is improve most consistent self-care. Client able to identify the pros and cons of this change and indicated that making the change would improve her self-esteem and better understand what skills work for her. Progress continues to be limited by client?s ongoing difficulties in consistent skill application and maintaining boundaries. Recommended continued IOP tx to prevent decompensation, improve mood stability, and reduce reliance on toxic supports. Narrative Note: []
--- NOTE | 2020-05-21 12:30 | PCM.BH.PN ---
Progress Note Progress Note: History of Present Illness/Interim History: [] The patient is a 29-year-old female who is seen in follow-up at the [facility] IOP program. I last saw the patient about 3 weeks ago. She states that she feels she is tolerating the Pristiq well and feels that her anxiety is somewhat improved. Her mood remains depressed however. She has low energy and finds it hard to get out of bed and continues to nap every day. The patient discontinued the Wellbutrin XL 3 days ago as I recommended. This is due to the fact that she purges by vomiting 1-3 times a day. She understands that since she just discontinued the Wellbutrin these symptoms she is having may get better over the next week or so and the Pristiq may benefit her more over the next week or so. She admits to having fleeting suicidal ideation but denies any active suicidal ideation and has no plan. She denies guilt, hallucinations, delusions or other symptoms. Current Psychiatric Medications: [] Wellbutrin XL discontinued 3 days ago; Pristiq 50 mg (x2-1/2 weeks). Lexapro 10 mg p.o. daily (decreased from 20 mg; on this for 9 years). Mental Status Examination: [] The patient is a 29-year-old female who is seen wearing a mask due to the pandemic. She is casually dressed and groomed with good hygiene. She is cooperative during the interview and pleasant. Her speech is normal rate and rhythm and fluent with no pressure. Eye contact is good. Her mood is depressed. Affect is constricted. Thought process is goal-directed and organized. Thought content: There is evidence of fleeting suicidal ideation but no evidence of active suicidal ideation or plan. No evidence of hallucinations or delusions. Judgment is intact. Insight: Some present. Impulsivity: Low. Diagnoses: [] [place] I: [] Major depressive disorder, recurrent, severe without psychosis; generalized anxiety disorder; bulimia nervosa with purging by emesis [place] II: [] B traits [place] III: [] On control pills [place] IV:[]] Primary support and work issues Plan: [] The patient will continue the IOP program as the structure, support, education, group and individual therapy will hopefully prevent worsening of the patient's symptoms. She felt safe during the interview and if at any time she does not feel safe she will let us know or go to the emergency room. The risks, options, possible complications and side effects of the patient's medications were discussed with the patient and she understands and accepts these. During a long discussion several options were given to Madonna regarding her medications. We could wait another week or so and see how the patient feels after she is off the Wellbutrin for a week and the Pristiq has more time to give her beneficial effects. Another option was to restart the Wellbutrin XL but never go over 150 mg p.o. every morning. The patient refuses to restart Wellbutrin and wants to wait and see how she feels in a week. Discussion was had as to her considering getting treatment for her bulimia since Wellbutrin is a pretty effective medication for her. She also agrees to stop the Lexapro now. I will see the patient in 1 week and depending on her symptoms at that time will consider medication changes. May add low-dose Abilify if the patient still feels really tired with low energy.
--- NOTE | 2020-05-23 09:01 | BH.SGPN.GN ---
This psychotherapy group was provided via telehealth using two-way, real-time interactive telecommunication technology between the patients and the provider. The interactive telecommunication technology included audio and video. The patient was offered telemedicine as an option for care delivery during the COVID-19 pandemic and consented to this option. Patient location: [place] Provider located at [facility] Behaviors/Verbalizations/Mental Status: []Client alert and oriented, casual dress. Eye contact fair to good, at times screen would disconnect from video. Motor activity appropriate. Speech within normal limits. Mood dysthymic, anxious. Affect congruent, though difficult to gather due to client attending via telehealth. Thoughts linear, logical, no signs of hallucinations or delusions. Reviewed client?s symptom tracker, no signs of suicidal ideation, plan, or intent as of today. Client Response/Progress/Benefit: []Pt responded well to session, actively engaged throughout and providing feedback as well as input to discussion. Reports feeling apprehensive today which she attributes to being able to identify small areas of progress but is concerned about her ability to continue making strides forwards without having another setback. Did well to challenge these thoughts and went on to identify current mental health positives. Positive include successfully creating a manageable self-care routine which she began yesterday. Expressed this helped to improve her mood and feel as though she has some areas of control despite external stressors. Additional positive indicated as reminding herself that setting a boundary is healthy and that she is allowed to be upset but does not have to allow her disappointment to consume her. Shared current stressor includes struggling to adjust to recent medication changes as her meds have not been altered in over 10 years. Pt was receptive of and appeared to benefit from support provided by the group. Progress noted in pt self-report of improved utilization of opposite action skills and increased ability to practice thought challenging and self-compassion. Will continue IOP tx to increase coping skills which promote mood stability, improve daily functioning, and reduce intensity of symptoms. Narrative Note: []
--- NOTE | 2020-05-23 10:15 | BH.SGPN.GN ---
This psychotherapy group was provided via telehealth using two-way, real-time interactive telecommunication technology between the patients and the provider.?The interactive telecommunication technology included audio and video.? ?The patient was offered telemedicine as an option for care delivery during the COVID-19 pandemic and consented to this option. ?Patient location: [place] ?Provider located at [facility] Behaviors/Verbalizations/Mental Status: []Client alert and oriented, neatly dressed and groomed. Eye contact good. Motor activity appropriate. Speech within normal limits. Affect constricted, mood dysthymic. Thoughts linear, logical, no signs of hallucinations or delusions. Client Response/Progress/Benefit: []Client active participant in group AEB client contributing thoughts and ideas throughout session and listening attentively to peers. Client was quiet at first, but became more engaged when prompted. Group worked together to identify barriers to making changes or taking action in their lives which included: habits, negative mindset, fear of failure, negative thinking, lack of resources, and toxic people. Group also identified that even though there are barriers to change, change is important in order to improve mental health. Client identified areas she would like to take back control over in her life to include: low self-esteem, unrealistic expectations, and negative ?what if? thinking. Client shared these things have caused client to ?stay stuck in a cycle of grief and loss.? Benefited from group through awareness of personal areas she wants to improve and benefits to taking action towards mental wellness. Will continue IOP tx to further decrease negative thinking that reinforces depression, improve healthy boundaries, and improve mood stability. Narrative Note: []
--- NOTE | 2020-05-28 09:03 | BH.SGPN.GN ---
Behaviors/Verbalizations/Mental Status: []Client alert and oriented, casual dress. Eye contact fair to good, at times struggling to connect screen to telehealth. Motor activity appropriate. Speech within normal limits. Mood dysthymic, anxious. Affect congruent, though difficult to gather due to client attending via telehealth. Thoughts linear, logical, no signs of hallucinations or delusions. Reviewed client?s symptom tracker, no signs of suicidal ideation, plan, or intent as of today. Client Response/Progress/Benefit: []Pt responded well to session, actively engaged throughout, providing feedback and input to discussion. Reports feeling defeated today which she has made progress in reducing depression but is now struggling with an increase in anxiety sx. Reports knowing that her anxiety is related to fearing beginning to address the root issues of her depression now that she is able to more effectively function at baseline. Pt recognized acknowledging this as progress rather than continuing to ignore or avoid addressing her core stressors. Additional progress noted by pt in improved ability to apply thought challenging and opposite action skills. Pt discussed wanting to spend more time focusing on her own needs and self-care moving forward. Pt was receptive of and appeared to benefit from support provided by the group as well as identifying areas of progress. Will continue IOP tx to increase application of coping skills which promote mood stability, improve boundaries, and maintain gains made. Narrative Note: []
--- NOTE | 2020-05-28 10:15 | BH.SGPN.GN ---
This psychotherapy session was provided via telehealth using two-way, real-time interactive telecommunication technology between the patients and the provider.?The interactive telecommunication technology included audio and video.? ?The patient was offered telemedicine as an option for care delivery during the COVID-19 pandemic and consented to this option. ?Patient location: [place] ?Provider located at [facility] Behaviors/Verbalizations/Mental Status: []Client alert and oriented, disheveled appearance. Eye contact good. Motor activity appropriate. Speech within normal limits. Affect congruent, mood dysthymic. Thoughts linear, logical, no signs of hallucinations or delusions. Client Response/Progress/Benefit: []Client was an active participant as shown by contributing to discussion. Client shared connecting to group topic of self-care and commented ?self-care promotes healthier boundaries.? Client helped the group discuss benefits of self-care which included; gain confidence, promote self-love, promotes healthier boundaries, improves mental and physical health, improve relationships, better emotional regulation. Participated in the discussion of the common myths about self-care including self-care is a luxury, unproductive, selfish, takes too much time, self-indulgent, should always be fun, too hard/challenging, and makes a person weak. Client participated in the discussion on debunking of these myths. Client seemed to benefit from increased awareness of the importance of self-care and challenging common myths that prevent practicing self-care. Will continue IOP tx to reduce negative thinking that reinforces depression and low self-esteem. Narrative Note: []
--- NOTE | 2020-05-28 12:19 | PCM.BH.PN ---
Progress Note Progress Note: History of Present Illness/Interim History: [] The patient is a 29-year-old female who is seen in follow-up at the [facility] behavioral health IOP program. I last saw the patient 1 week ago and at that time she stopped her Lexapro. She states that she is doing fine since stopping the Lexapro and has not not noticed any side effects or worsening of symptoms. She feels much less foggy this week than she did before stopping the Lexapro. Her mood remains somewhat depressed but better and less depressed than she was before. She feels anxious lately still though. She has low energy and fatigue sometimes during the day. She denies any active suicidal ideation or a plan. She still has rare fleeting suicidal ideation. She denies any other psychiatric symptoms except as noted above. Discussion was had over the patient's current [facility] time running out and the patient states that she does not feel she is ready to return to work. She does not feel that she is able to take care of anyone else until she gets a little more improvement in her condition. Discussed with the patient that I will talk with the other staff and consider extending her release from work another 4 weeks at the patient's request. Current Psychiatric Medications: [] Pristiq 50 mg p.o. daily (x4 weeks); Lexapro DC'd 1 week ago. Wellbutrin XL discontinued about 10 days ago due to the fact that the patient purges by emesis. Mental Status Examination: [] Patient is a 29-year-old female who is seen by telehealth and is casually dressed and groomed with good hygiene. She has no psychomotor agitation or retardation. Her speech is normal rate and rhythm and fluent with no pressure. Eye contact is good. Mood is depressed but less depressed than last week. Her affect is getting more towards a full affect. Thought process is goal-directed and organized. Thought content: There is still occasional fleeting suicidal ideation. No evidence of active suicidal ideation or plan. No evidence of hallucinations or delusions. Judgment is intact. Insight: Decent. Impulsivity: Low. Diagnoses: [] [place] I: [] Major depressive disorder, recurrent, severe without psychosis; generalized anxiety disorder; bulimia nervosa with purging by emesis [place] II: [] Cluster B traits [place] III: [] On control pills [place] IV:[]] Primary support and work issues Plan: [] The patient will continue the IOP program as the structure, support, education, group and individual therapy will hopefully prevent worsening of the patient's symptoms. She felt safe during the interview and if at any time she does not feel safe she will let us know or go to the emergency room. The risks, options, possible complications and side effects of the patient's medications were discussed with the patient and she understands and accepts these. The patient agrees after long discussion to increase her Prozac to 100 mg p.o. daily to see if we get more improvement in her depression and anxiety. Patient does not wish to add any new medications at this point. In addition we will request on 4 more weeks of time off from work. I will see the patient in follow-up in 2 weeks. She will continue to follow-up with outpatient providers.
--- NOTE | 2020-05-28 12:26 | PCM.BH.PN_ITS ---
Progress Note Progress Note: History of Present Illness/Interim History: [] The patient is a 43-year-old female who is seen in follow-up at the [facility] behavioral health IOP program. She is currently being treated for depression, anxiety, and PTSD. I last saw the patient 2 weeks ago and at that time her Prozac was increased to 40 mg p.o. daily. Vitamin D prescription was also given at that time. Patient is tolerating the increased Prozac dose well. She has no side effects. She states that she does feel a little more motivated and is able to get more things done lately. She still feels though anxious and her severe ongoing chronic stressors remain. She still has occasional down days but states that she has less hopelessness now. She feels feels hopeless at times but not constant like it was before. She enjoys a few things lately also like watching a good TV show. She enjoyed playing [place] hippo with her children recently. She is still sleeping sometimes 12 hours on the weekends. Discussion was had about trying to keep the similar sleep-wake hours every day. She agrees to try to sleep only 8 to 9 hours total each day on the weekend. She also agrees to continue to limit caffeine. The patient feels she is benefiting from our IOP program but she also feels that she needs more in-depth treatment for her PTSD which she plans to do next. Current Psychiatric Medications: [] Prozac 40 mg p.o. daily (x2 weeks, 6 months on Prozac total); Xanax 0.5 mg, 1-2 p.o. as needed but patient only uses this 1- 2 times a week. Mental Status Examination: [] Patient is a 19-year-old female who is seen by telehealth and appears casually dressed and groomed with good hygiene. She has no psychomotor agitation or retardation. Eye contact is good. Speech is normal rate and rhythm and fluent with no pressure. Mood is somewhat depressed. Affect is full. Thought process is goal-directed and organized. Thought can content: No evidence of active suicidal ideation or homicidal ideation. No evidence of hallucinations or delusions. Judgment is intact. Insight: Some present. Impulsivity: Low. Diagnoses: [] [place] I: [] Major depressive disorder, recurrent, severe without psychosis; PTSD; anxiety disorder NOS [place] II: [] Deferred [place] III: [] Obesity [place] IV:[]] Primary support issues Plan: [] The patient will continue the IOP program as the structure, support, education, and individual and group therapy will hopefully prevent worsening of the patient's symptoms that might require hospitalization. The patient felt safe during the interview and if at any time she does not feel safe she will let us know or go to the emergency room. The risks, options, possible side effects and complications of the medications were discussed with the patient and she understands and accepts these. The patient agrees to continue her Prozac at 40 mg p.o. daily. She will continue taking her vitamin D once a week also. She will continue to follow-up with her outpatient providers. I will see the patient in follow-up in several weeks or as needed. The patient will be given an extension on her time off from work by 4 weeks.
--- NOTE | 2020-05-29 11:20 | BH.SGPN.GN ---
Behaviors/Verbalizations/Mental Status: []Client alert and oriented, casually dressed and grooming appropriate. Eye contact good. Motor activity appropriate. Speech within normal limits. Affect congruent though difficult to determine as client wearing a mask per COVID-19 protocol, mood dysthymic. Thoughts linear, logical, no signs of hallucinations or delusions. Client Response/Progress/Benefit: []Client engaged in session AEB contributing to discussion and providing throughout. Client participated in the continued discussion on what prevents moving on to the ?next chapter? in our life and the importance of problem-solving solutions to address identified barriers. Identifying justifying current behaviors as a barrier. Worked with peers to brainstorm the components of A,B,C,D,E problem solving method and various strategies for promoting follow-through in each stage. Client identified negative self-talk as a barrier preventing her from moving to the next chapter in mental health recovery. Shared that by problem-solving this barrier she will feel more confident and willing to set healthy boundaries with others. Identified using a list of premade affirmations to recite daily as a first step she can take in the problem-solving process. Appeared to benefit from learning about problem solving method and practice applying this to personal barriers identified. Progress noted in self-report of increased ability to manage depressive sx. Continues to struggle with maintaining boundaries and distorted thought patterns. Will continue IOP tx to prevent decompensation, maintain gains, and continue to promote healthy change behaviors. Narrative Note: []
--- NOTE | 2020-05-29 11:53 | BH.MDN ---
Multi-Disciplinary Note - Note 45-min Individual Time Started:: 09:10 Date: 05/29/20 Purpose of session/treatment goals addressed:: Purpose of session was to assess pt's current symptoms and stressors. Otehr topics included discussing treatment progress Time Stopped:: 10:05
--- NOTE | 2020-05-30 09:00 | BH.SGPN.GN ---
Behaviors/Verbalizations/Mental Status: []Client alert and oriented, neatly dressed and groomed. Eye contact good. Motor activity appropriate. Speech within normal limits. Affect unable to gather due to wearing a mask for COVID-19 protocol, mood anxious and euthymic. Thoughts linear, logical, no signs of hallucinations or delusions. Reviewed client?s symptom tracker, no risk for suicidal ideation, plan, or intent as of 05/30/20. Client Response/Progress/Benefit: []Client responded well to session, attentive and contributing to discussion. Client reports feeling tired but hopeful this morning. Client shared her depressive symptoms have significantly decreased and that client is no longer feeling numb. Client stated she has been experiencing some increased anxiety which is weird for me...I know depression I don't know anxiety. Client reported she has been using a lot of coping skills to manage her symptoms including positive self-talk, grounding, and reminding herself that she wants to choose a different path. Client's stressor today is that she has a family wedding this weekend and I'm like the only one not in a relationship. Client stated she is doing better with accepting this. Appeared to benefit from reflecting on her gains and connecting with peers. Will continue IOP tx to promote mood stability, further increase self-love, and improve daily functioning. Narrative Note: []
--- NOTE | 2020-05-30 10:14 | BH.SGPN.GN ---
Behaviors/Verbalizations/Mental Status: []Eye contact is good. Motor activity is appropriate. Appearance is casual. Speech is WNL. Mood is dysthymic. Affect unable to gather due to wearing a mask for COVID-19 protection. Thoughts are linear and logical. No evidence of psychosis. Client Response/Progress/Benefit: [] Pt was actively engaged AEB contributing to discussion, taking notes, and participating in activity. Connected with the topic of pitfalls, sharing that ?it feels like the right path is never the easiest?. Helped the group discuss barriers that keep them from choosing a healthier path to mental wellness. These barriers included; difficulties adjusting to change, fear of failure, habit, and lack of awareness. Pt reported that she is currently struggling with justifying old toxic habits as a barrier in her own progress. Client was engaged during the activity and did well to provide support and encouragement to the group. Several times pt appeared to become anxious when the group faced potential failures during the task. She did well to use healthy coping skills to regulate these emotions and was even willing to take on a leadership role throughout. Pt benefited from increased awareness on the impact that pitfalls can have on mental health. Progress noted in pt self-report of increased application of healthy coping skills and reduced depressive sx. Will continue IOP tx to maintain mood stability, improve healthy boundary maintenance, and better manage her mental health sx. Narrative Note: []
--- NOTE | 2020-06-05 10:15 | BH.SGPN.GN ---
Behaviors/Verbalizations/Mental Status: []Client alert and oriented, neatly dressed and groomed. Eye contact good. Motor activity appropriate. Speech within normal limits. Affect unable to gather due to wearing a mask for COVID-19 protocol, mood euthymic. Thoughts linear, logical, no signs of hallucinations or delusions. Client Response/Progress/Benefit: []Client responded well to session, engaged and participating in group discussion. Client connected with the quote and shared in re-reading one?s life ?just makes me want to control things I can?t.? Group discussed the difference between ruminating and reflecting for growth with group members. Client helped group identify the importance of change which included: growth, less anxiety and depression, confidence, and happiness. Group also identified barriers keeping clients from changing which included: fear of the unknown, fear of failure, comfort, and habit. Participated in the discussion of the different zones of change. Client reported she has struggled in both the comfort and danger zones. Client described her comfort zone as ?apathetic, bored, and no energy.? Client described her danger zone as ?impulsive and reckless.? Client stated she has pushed herself in IOP to get into the learning zone which has helped client make progress. Appeared to benefit from gaining awareness of the benefits of change as well as the different zones of change. Will continue IOP tx to further improve mood stability and daily functioning. Narrative Note: []
--- NOTE | 2020-06-05 11:13 | BH.SGPN.GN ---
Behaviors/Verbalizations/Mental Status: []Client alert and oriented, casually dressed and groomed. Eye contact good. Motor activity appropriate. Speech within normal limits. Affect unable to gather due to client wearing a mask per COVID-19 protocol, though appears congruent, mood dysthymic. Thoughts linear, logical, no signs of hallucinations or delusions. Client Response/Progress/Benefit: []Pt was engaged throughout AEB contributing to discussion on the ?comfort zone? of behavior and potential costs as well as benefits of being in the comfort zone. Pt reported that for her the comfort zone leads to apathy, depression, boredom, decreased energy, and increased appetite. She did well to work with the group on identifying potential mental health costs of remaining in one?s comfort zone which included: staying stuck, lack of personal growth, resistance to change, disengagement, and lack of motivation. Pt shared small steps she can take to step out of identified comfort zone as: Completing 1 house chore a day, as well as setting aside 20 minutes for activity daily. She contributed to discussion reviewing importance of accountability in following through with identified goals. Appeared to benefit from psychoeducation and working with the group to brainstorm strategies for improving personal accountability. Pt identified using the [employer] maris and creating a daily ?To Do? list to promote personal accountability. Progress noted in self-report of improved mood as well as more active application of skills learned. Pt will continue IOP tx to promote gains, further decrease depression, and improve daily functioning. Narrative Note: []
--- NOTE | 2020-06-06 09:00 | BH.SGPN.GN ---
Behaviors/Verbalizations/Mental Status: [] Eye contact is good. Motor activity is appropriate. Appearance is neat. Speech is Appropriate. Mood is anxious. Affect is congruent. Thoughts are linear and logical. No evidence of psychosis. Reviewed daily check in sheet and no reports of suicidal ideations or intent. Client Response/Progress/Benefit: [] Pt was an active participant in group discussion. Emotion for today is anxious. Pt shared that she is anxious about returning to work next week however is also looking forward to it. Feels more stable and confident and would like to get back into consistent routine. She has begun to set boundaries for herself and for work noting that she would often people please and set appointments and meeting which were convenient for other but not her. Insight into how people pleasing has negatively impacted her mental health and is working on setting up boundaries. Progress noted per pt report. Benefited from group support, encouragement, and feedback. Will continue in IOP to prevent decompensation and help with transitioning back to full-time work. Narrative Note: []
--- NOTE | 2020-06-06 10:15 | BH.SGPN.GN ---
Behaviors/Verbalizations/Mental Status: []Client alert and oriented, casually dressed and groomed. Eye contact good. Motor activity appropriate. Speech within normal limits. Affect unable to gather due to client wearing a mask as a COVID protocol, mood dysthymic. Thoughts linear, logical, no signs of hallucinations or delusions. Client Response/Progress/Benefit: []Client was an active participant AEB providing input, listening attentively to others and taking notes. Contributed to discussion of the quote and stated she could connect with the importance of learning ways to sit with uncomfortable feelings. Client shared being able to do this can ?keep us from remaining stuck?. Client connected with discussion on the difference between ?normal? anxiety and when anxiety becomes problematic. Discussing that problematic anxiety can be identified by noticing if there is an increase in intensity of usual anxiety related symptoms. Client gained awareness of personal physical symptoms of anxiety which included: exhaustion, chest pain, shakiness, nausea, and loss of appetite. Client also identified safety behaviors client has used when feeling anxious. These safety behaviors included; isolating and sleeping to avoid. Client appeared to benefit from gaining insight to physical signs of anxiety and personal safety behaviors. Progress noted in self-report of improved boundary setting and increased use of thought challenge skills. Will continue IOP to increase consistent application of healthy coping skills, continue to challenge distorted thoughts, and promote gains. Narrative Note: []
--- NOTE | 2020-06-06 11:15 | BH.SGPN.GN ---
Note opened in error; pt was not present for this group Behaviors/Verbalizations/Mental Status: [] Client Response/Progress/Benefit: [] Narrative Note: []
--- NOTE | 2020-06-06 15:16 | BH.MDN ---
Multi-Disciplinary Note - Note 45-min Individual Time Started:: 11:30 Date: 06/06/20 Time Stopped:: 12:15
== END 2020-06-06 23:59 ==
LOC: BHIOP 09:00
PROVIDERS: PCP Family Medicine; Referring Provider Psychiatry & Neurology Psychiatry; Visit Provider Psychiatry & Neurology Psychiatry
DX: F33.2 Major depressive disorder, recurrent severe without psychotic features (principal); F41.1 Generalized anxiety disorder; F50.2 Bulimia nervosa; Z79.899 Other long term (current) drug therapy
CPT/HCPCS: H0035; 90832; 90834; 90853

== ENCOUNTER 2020-06-11 08:00 | Outpatient (RCR) | payer OTHER, SELFPAY ==
[2020-06-07 00:36] VITALS: BP 118/62; PULSE 76
--- NOTE | 2020-06-11 09:05 | BH.SGPN.GN ---
Behaviors/Verbalizations/Mental Status: []Client alert and oriented, neatly dressed and groomed. Eye contact good. Motor activity appropriate. Speech within normal limits. Affect unable to gather due to wearing a mask for COVID-19 protocol, mood euthymic. Thoughts linear, logical, no signs of hallucinations or delusions. Reviewed client?s symptom tracker, no risk for suicidal ideation, plan, or intent as of 06/11/20. Client Response/Progress/Benefit: []Client responded well to session, attentive and providing supportive statements. Client reports feeling motivated today. Client shared her gameplan from last session was to sweep her house and make one home cooked meal. Client stated she is half way done with her goal. Client identified numerous positives today such as using opposite action, returning to work, spending time with her mother, and thought challenging. Client's stressor today is she is still getting used to transitioning back to work. Appeared to benefit from reflecting on growth in her application of coping skills and improved mood. Will continue IOP tx to promote gains, further improve daily functioning, and reduce negative thoughts. Narrative Note: []
--- NOTE | 2020-06-11 11:15 | BH.SGPN.GN ---
Behaviors/Verbalizations/Mental Status: []Client alert and orient. Appearance casual and appropriately groomed. Speech an appropriate rate and tone. Motor activity WNL. Mood euthymic, affect unable to determine as client wearing mask per COVID-19 protocol. No evidence of delusion or hallucinations.? Client Response/Progress/Benefit: []Client receptive of group and attentive during the discussion AEB providing input and taking notes. Client contributed during group discussion on the differences between intrinsic and extrinsic motivation. Noting the intrinsic motivation is ?motivation that comes from yourself and not others. Remained engaged and worked with group to identify potential costs of solely relying on external sources of motivation and benefits of having a solid source of intrinsic motivation. Group noted benefits of intrinsic motivation included; needs getting met, continued motivation when supports aren?t available, greater sense of purpose, feeling personally challenged, and improved self-esteem. Client helped group brainstorm potential strategies for improving intrinsic motivation. Identified plans to create a more structured weekly routine and focus on benefits of each activity to promote intrinsic motivation. Client appeared to benefit from increasing awareness of how one?s source of motivation can impact mental health and ability to maintain gains. Progress noted in client self-report of improved mood and reduced negative thought patterns. Client will continue IOP tx to further improve depression management, promote healthy coping skill application, and improve daily functioning. Narrative Note: []
--- NOTE | 2020-06-12 10:10 | BH.SGPN.GN ---
Behaviors/Verbalizations/Mental Status: []Client alert and oriented, casual dress, hygiene tended to. Eye contact good. Motor activity appropriate. Speech within normal limits. Affect unable to assess as pt wearing a mask per COVID-19 protocol, mood euthymic. Thoughts linear, logical, no signs of hallucinations or delusions. Client Response/Progress/Benefit: []Pt responded well to session AEB contributing to discussion, actively listening to others, and taking notes throughout. Pt appeared to connect well with topic of resilience and indicated that for her resilience means ?being able to be flexible when faced with stressors in life and adapt?. Worked with the group to identify potential consequences of resisting rather than adapting when faced with trauma or adversity. Costs included: lashing out, increased depression and anxiety, panic, and a negative impact on overall ability to function. Pt reported that by being resilient you can ultimately ?withstand more before you end up breaking?. She remained attentive during on the psychoeducation on various alberto factors in developing personal resilience. Pt actively contributed during small group discussion identifying benefits of each factor in fostering resilience. Shared that she could connect with these strategies but often struggles to remember to utilize them. Pt seemed to benefit from increasing awareness of strategies to increase personal resilience and the impacts of resilience on managing mental health sx. Progress noted in pt improved mood and ability to maintain boundaries with self and others. Pt to continue IOP to continue use of healthy coping, continue to challenge distorted thoughts, and prevent decompensation. Narrative Note: []
--- NOTE | 2020-06-12 11:09 | BH.SGPN.GN ---
Behaviors/Verbalizations/Mental Status: []Client alert and oriented, casually dressed and groomed. Eye contact good. Motor activity appropriate. Speech within normal limits. Affect unable to gather due to client wearing a mask for COVID-19 protocol, mood euthymic. Thoughts linear, logical, no signs of hallucinations or delusions. Client Response/Progress/Benefit: []Client engaged participant as evidenced by client providing input throughout discussion and listening attentively to peers. Client participated in the discussion of how each resiliency component can help increase personal resiliency. Client identified current resiliency traits she currently possesses and then identified what trait she would like to improve. Client reports belief she has been using the resiliency traits of making connections and challenging perspective. Client reported these traits have helped client be hopeful, reframe thinking, and stay motivated. Client stated she would like to work on nurturing a positive view of self. Client identified strategies to help with this such as thought challenging, regular self-care, and identifying things she loves about herself. Client appeared to benefit from increasing insight to ways in which client can improve resilience to adversity and daily stressors. Client is making progress AEB her generalization of coping skills and improved mood. Client will continue IOP tx to promote gains and further improve functioning. Narrative Note: []
--- NOTE | 2020-06-12 15:21 | BH.MDN ---
Multi-Disciplinary Note - Note 45-min Individual Time Started:: 10:25 Date: 06/12/20 Time Stopped:: 11:03
--- NOTE | 2020-06-13 10:20 | BH.SGPN.GN ---
Behaviors/Verbalizations/Mental Status: [] Client alert and oriented, casually dressed and appropriately groomed. Eye contact good. Motor activity appropriate. Speech within normal limits. Affect congruent, mood euthymic. Thoughts linear, logical, no signs of hallucinations or delusions. Client Response/Progress/Benefit: []Pt was an active participant in group and provided input throughout discussion. Connected with the topic of obstacles and solutions and worked with group to identify common internal and external barriers that keep people stuck. Noted that sometimes addressing barriers is much more difficult based on willingness to accept barriers. Group identified; self-doubt, negative thinking, unhealthy coping skills, poor boundaries, and lack of motivation as potential internal barriers that could prevent progress towards a better quality of life. Pt shared current reality as ?on the ?S.S. therapy? and headed towards ?normal island??. Shared that she continues to need to be aware of the potential boulders preventing continued progress, but the she feels she has made it ?out of the crappy mental health storm?. Pt's realistic, desired reality is to be ?on healthy, normal island? with her supports and able to maintain her mental health despite potential setbacks. Benefited from group as client was able to identify current mental health state and impact of internal barriers on progress. Progress noted in pt improved ability to set and maintain boundaries. Will continue IOP tx to promote change behaviors, increase application of healthy coping skills, as well as improve functioning. Narrative Note: []
--- NOTE | 2020-06-13 11:20 | BH.SGPN.GN ---
Behaviors/Verbalizations/Mental Status: []Client alert and oriented, neatly dressed and groomed. Eye contact good. Motor activity appropriate. Speech within normal limits. Affect unable to gather due to wearing a mask for COVID-19 protocol, mood euthymic. Thoughts linear, logical, no signs of hallucinations or delusions. Client Response/Progress/Benefit: []Client was an active participant in group discussion and attentive during the activity. Engaged during activity and provided ideas on how to cope with internal barriers that keep clients stuck from moving towards goals. Barriers identified by client were: lack of motivation, lack of self-esteem, and unhealthy responses to mental health symptoms. Group helped identify strategies to combat barriers identified by group members. Client reported she would like to work on overcoming the barrier of self-esteem. Client shared she will do this by increasing her positive self-talk and have people call her out when she uses self-deprecation. Benefited from group by identifying obstacles and solutions to desired reality. Progress noted in client?s increased self-awareness of barriers and generalization of coping skills. Will continue IOP tx to promote the use of healthy coping skills and challenge distortions. Narrative Note: []
--- NOTE | 2020-06-18 08:59 | BH.SGPN.GN ---
Behaviors/Verbalizations/Mental Status: []Client alert and oriented, casual dress, hygiene tended to. Eye contact good. Motor activity appropriate. Speech within normal limits. Affect unable to accurately assess as client wearing mask per COVID-19 protocol, mood euthymic and anxious. Thoughts linear, logical, no signs of hallucinations or delusions. Reviewed client?s symptom tracker, denies denies any suicidal ideation, plan, or intent as of 06/18/20. Client Response/Progress/Benefit: [] Client responded well to session, attentive and provided supportive statements to peers. Client reports feeling content today. Client shared she has been working on improving her self-talk recently and feels she has made progress in regard to challenging negative thoughts, however, continues to struggle to believe affirmations when using them. Noted feeling the affirmations are ?bullshit? at times and that she is just tricking herself. Receptive of and appeared to benefit from supportive feedback and suggestions provided by group. Client trying to remind herself that ?it is a work in progress? and that ?progress is not easy? have been helpful as well. Share an additional positive as being able to focus on positives about returning to work such as spending time with coworkers she enjoys. Client did not have any significant stressors today, though noted mild anxiety about filling her time once she has completed IOP tx. Progress noted in client's application of healthy coping skills, but she can continue to work on challenging self to identify areas she deserves credit. Will continue IOP tx to promote gains and further improve self-confidence promoting skills. Narrative Note: []
--- NOTE | 2020-06-18 10:05 | BH.SGPN.GN ---
Behaviors/Verbalizations/Mental Status: []Client alert and oriented, neatly dressed and groomed. Eye contact good. Motor activity appropriate. Speech within normal limits. Affect unable to gather due to wearing a mask for COVID-19 protocol, mood euthymic. Thoughts linear, logical, no signs of hallucinations or delusions. Client Response/Progress/Benefit: []Client active participant in group AEB client contributing thoughts and ideas throughout session and listening attentively to peers. Client connected with the quote and shared ?taking no action means you stay stuck.? Group worked together to identify barriers to taking action in their lives which included: habits, negative thinking, apathy, lack of motivation, and being stuck in the past. Group identified that taking action is needed in order to improve mental health. Client identified areas client would like to take back control over in life to include: excuses, lack of motivation, procrastination, and negative thinking. Client shared if she could take control over these things client would take advantage of more opportunities in life and be happier. Benefited from awareness of personal areas client wants to improve and benefits to taking action towards mental wellness. Will continue IOP tx to promote gains, further reinforce healthy coping skills, and improve confidence. Narrative Note: []
--- NOTE | 2020-06-18 12:15 | PCM.BH.PN ---
Progress Note Progress Note: History of Present Illness/Interim History: [] Patient is a 29-year-old female who is seen in follow-up at the [facility] behavioral health IOP program. I last saw the patient about 3 weeks ago. Patient feels she is doing better on the increased Pristiq dose of 100 mg. She states that her anxiety is much better and her mood is slowly improving but she still is depressed. She feels that work is going well right now and she returned to work last week on a reduced schedule. She feels she may be able to handle work because it is going to take a while for it to get back up to normal volume because of the COVID pandemic. The patient is purging less often and does not purge every day now. She has no panic attacks but still has low energy. She does not feel rested and has been told she has mild sleep apnea but not bad enough to need CPAP. She denies any suicidal ideation or any passive thoughts. She denies hallucinations or delusions. Current Psychiatric Medications: [] Pristiq 100 mg p.o. daily (for about 2 weeks now due to insurance issues.) She has been off Wellbutrin for 3-1/2 weeks. Mental Status Examination: [] Patient is a 29-year-old female who is seen wearing a mask due to the pandemic. She is casually dressed and groomed with good hygiene and has no psychomotor agitation or retardation. Eye contact is good and speech is normal rate and rhythm and fluent with no pressure. Mood is mildly depressed. Affect is constricted and consistent with mood. Thought process is goal-directed and organized. Thought content: There is no evidence of suicidal or homicidal ideation. No evidence of hallucinations or delusions. Judgment is intact. Insight: Some present. Impulsivity: Low. Diagnoses: [] [place] I: [] Major depressive disorder, recurrent, severe without psychosis; generalized anxiety disorder; bulimia nervosa with purging by emesis [place] II: [] B traits [place] III: [] On control pills [place] IV:[]] Primary support and work issues Plan: [] The patient will continue the IOP program as the structure, support, education, group and individual therapy will hopefully prevent worsening of the patient's symptoms that might require hospitalization. She felt safe during the interview and if at any time she does not feel safe she will let us know or go to the emergency room. The risks, options, possible complications and side effects of the patient's medications were discussed with the patient and she understands and accepts these. She is only been on the increased dose of Pristiq for 2 weeks so we will continue the current medication regimen as she should get more improvement still. Patient will follow-up with her outpatient providers.
--- NOTE | 2020-06-19 10:32 | BH.MDN ---
Multi-Disciplinary Note - Note 45-min Individual Time Started:: 09:30 Date: 06/19/20 Purpose of session/treatment goals addressed:: Purpose of session was to assess pt's current symptoms and stressors. Other topics included Time Stopped:: 10:15
--- NOTE | 2020-06-19 11:05 | BH.SGPN.GN ---
Behaviors/Verbalizations/Mental Status: []Client alert and oriented, casual dress, hygiene tended to. Eye contact good. Motor activity appropriate. Speech within normal limits. Affect could not be assessed due to pt wearing a mask due to COVID-19 pandemic requirements. mood euthymic. Thoughts linear, logical, no signs of hallucinations or delusions. Client Response/Progress/Benefit: Pt active participant AEB pt listening attentively to peers, providing input throughout session and completing worksheet. Pt benefitted from listening as group reflected upon the mental health benefits of taking small actionable steps towards addressing barriers and promoting healthy change in daily life. Pt did well to work with the group on completing the example Change Action Plan and applying the skills learned to pt own Action Plan. Pt identified wanting to decrease negative self-talk. Pt shared she would begin by using one positive affirmation at least five times per day and complete at least one self-care activity per day. Pt stated she believed this goals are attainable because her perspective is in a more positive place compared to when first started program. Pt progress noted in ability to identify concrete and realistic steps to addressing barriers to actionable change identified. Recommended continued IOP tx to prevent decompensation and maintain gains. Narrative Note: []
--- NOTE | 2020-06-19 11:10 | BH.SGPN.GN ---
Behaviors/Verbalizations/Mental Status: []Client alert and oriented, casually dressed and groomed. Eye contact good. Motor activity appropriate. Speech within normal limits. Affect difficult to assess as pt wearing a mask due to COVID-19 hospital protocol, mood euthymic. Thoughts linear, logical, no signs of hallucinations or delusions. Client Response/Progress/Benefit: []Client an active participant AEB contributing to discussion and taking notes throughout. Client participated in group activity highlighting the various barriers to effectively utilizing supports and strategies for promoting effective use. Shared that poor communication or shutting down can be a barrier. Client participated in discussion reviewing strategies to improve overall use of current supports as well as how to begin building new supports. Client identified she would like to show more respect for her support?s boundaries as well as identify specific roles they can play in supporting her. Noted that this will prevent client from becoming upset if her supports are not available or able to help with something. Client seemed to benefit from identifying a strategy for improving support she would like to begin implementing in her own life. Progress noted by client's improved ability to manage emotions and increased ability to maintain healthy boundaries. Client to continue in IOP tx to continue to promote healthy change behaviors, further improve emotion regulation, and maintain gains made. Narrative Note: []
--- NOTE | 2020-06-20 09:05 | BH.SGPN.GN ---
Behaviors/Verbalizations/Mental Status: [] Eye contact is good. Motor activity is appropriate. Appearance is casual. Speech is Appropriate. Mood is anxious. Affect is congruent. Thoughts are linear and logical. No evidence of psychosis. Reviewed daily check in sheet and no reports of suicidal ideations or intent. Client Response/Progress/Benefit: [] Pt participated at times in group discussion. More distracted than earlier in the week. Emotion is anxious. Notes increase in anxiety and ruminations. Reports regression. Increase in negative thoughts and self-talk. Skills have not been as effective. Concerned about decompensation. Attempting to use skills however limited benefits when she does is discouraging. Had plans this weekend with support which were cancelled. Limited progress noted. Benefited from group support and encouragement. Has been going to work and functioning. Will continue in IOP to prevent decompensation, transition back to full-time work, and increase consistent use of skills. Narrative Note: []
--- NOTE | 2020-06-20 10:14 | BH.SGPN.GN ---
Behaviors/Verbalizations/Mental Status: []Client alert and oriented, neatly dressed and groomed. Eye contact good. Motor activity appropriate. Speech within normal limits. Affect unable to gather due to wearing a mask for COVID-19 protocol, mood euthymic. Thoughts linear, logical, no signs of hallucinations or delusions. Client Response/Progress/Benefit: []Client responded well to session, attentive and taking notes throughout session. Client connected with the topic of relationships and shared ?this group is for me? I think of relationships and get anxiety. Client helped group discuss the benefits of relationships as well as the different types of relationships one can have. Group identified the risk factors for unhealthy relationships which included: substance abuse, low self-esteem, childhood trauma, cycle of abuse, and negative core beliefs. Client helped group develop a list of the consequences that unhealthy relationships have on mental health. These included: poor boundaries, increased depression and anxiety, and negative self-talk. Client shared unhealthy relationships can ?make you lose your sense of self.? Appeared to benefit from increasing awareness of the impact unhealthy relationships can have on mental health. Progress noted AEB client?s self-report of improved mood stability. Will continue IOP this week to reinforce healthy coping skills and promote gains. Narrative Note: []
--- NOTE | 2020-06-20 11:13 | BH.SGPN.GN ---
Behaviors/Verbalizations/Mental Status: []Client alert and orient. Appearance casual and appropriately groomed. Speech an appropriate rate and tone. Motor activity WNL. Mood euthymic, affect unable to determine as client wearing mask per COVID-19 protocol. No evidence of delusion or hallucinations.? Client Response/Progress/Benefit: []Client receptive of group and engaged during activity in which the group was challenged to identify heathy vs. unhealthy behaviors and characteristics of relationships. She contributed during the processing portion and indicated that identifying unhealthy relationships is much harder outside the treatment environment. Reflected that this may be due to lack of insight or struggling to process difficult or confusing emotions regarding a relationship. Client worked with the group to brainstorm potential strategies for improving own ability to identify whether a relationship is healthy. Strategies for improving insight included: determine if your values align or if you feel you have to compromise your own personal values, ask yourself ?is there mutual respect and understanding in the relationship??, take notice of if boundaries are respected, reflect on whether you are supportive of one another during difficult times, and ask yourself ?How do I feel when I am around this person??. Client identified plans to examine her boundaries and whether they are respected to gain better insight into health of current relationships. Client appeared to benefit from increasing awareness of healthy vs. unhealthy relationships. Progress noted in client self-report of improved mood and ability to better set personal boundaries. Client will continue IOP tx to further improve symptom management, promote healthy coping skill application, and maintain gains. Narrative Note: []
--- NOTE | 2020-06-24 09:05 | BH.SGPN.GN ---
Behaviors/Verbalizations/Mental Status: []Client alert and oriented, casual dress, hygiene tended to. Eye contact good. Motor activity appropriate. Speech within normal limits. Affect unable to accurately assess as client wearing mask per COVID-19 protocol, mood euthymic and anxious. Thoughts linear, logical, no signs of hallucinations or delusions. Reviewed client?s symptom tracker, denies any suicidal ideation, plan, or intent as of 06/24/20. Client Response/Progress/Benefit: [] Pt responded well to session, attentive and provided input throughout. Reports feeling anxious today as her 30th birthday is coming up this week and she has been struggling with thoughts of ?I haven?t achieved enough by now?. Client shared she has been working on improving her self-talk recently and feels this has been helpful in identifying and challenging distorted thoughts related to her upcoming birthday. Receptive of support provided be group as well. Pt went on to indicate current wins include being able to spend quality time with her brother and niece, as well as continued progress on her thought challenging goals. Pt appeared to benefit from reflecting upon gains made throughout treatment as well as identifying personal skills she is using. Progress noted in client's application of healthy coping skills, but she can continue to work on challenging self-talk. Will continue IOP tx to promote gains and complete discharge planning. Narrative Note: []
--- NOTE | 2020-06-24 11:13 | BH.SGPN.GN ---
Behaviors/Verbalizations/Mental Status: []Client alert and oriented, casual appearance. Eye contact good. Motor activity appropriate. Speech within normal limits. Affect unable to gather due to wearing a mask for COVID-19 protocol, mood euthymic. Thoughts linear, logical, no signs of hallucinations or delusions. Client Response/Progress/Benefit: []Client responded well to session, participating during the group activity and willing to complete the worksheet. Client completed the fear of failure worksheet and reported that fear of failure has kept client from choosing healthy relationships, trying new things, pursuing education, and learning about self. Client able to identify barriers that reinforce her fear of failure which included: negative self-talk, discounting positives, overgeneralizing, lack of self-care, and unrealistic expectations. Client attentive during discussion of the different strategies to help overcome fear of failure. Group identified strategies such as: self-compassion, grounding, using ?keen? thinking, challenging distortions, and positive affirmations. Client reported her past failures have taught client that ?failures make me stronger, failing is better than missing an opportunity, and failure is not a reflection of my character.? Client appeared to benefit from learning ways to overcome fear of failure. Will continue IOP tx to reinforce healthy coping skills, promote gains, and establish aftercare. Narrative Note: []
--- NOTE | 2020-06-25 10:12 | BH.SGPN.GN ---
Behaviors/Verbalizations/Mental Status: []Client alert and oriented, casually dressed. Eye contact good. Motor activity appropriate. Speech within normal limits. Affect congruent, though difficult to assess as pt wearing a mask per COVID-19 protocol. mood euthymic and anxious. Thoughts linear, logical, no signs of hallucinations or delusions. Client Response/Progress/Benefit: []Client engaged throughout session AEB providing input to discussion and taking notes throughout. Connected with discussion on how coping with external crises by using unhealthy coping skills could result in a personal crisis. Client noted that ?one crisis can easily turn into multiple personal crises if we let it?. Group reported that it is important to have awareness of warning signs which can prevent reaching crisis point. Group identified potential warning signs for crisis and client completed the personal warning signs worksheet. Client identified personal crisis warning signs to include: unusual drop in functioning, isolating/avoiding others, negative thinking, and sleeping more than usual. Noted that for her an additional warning sign includes a lack of self-care and change in personal hygiene routine. Client benefited by increasing awareness of what leads to crisis and personal warning signs. Progress noted in client self-report of improved ability to challenge negative thoughts, maintain healthy boundaries, and increased positive self-talk. Given gains made, pt is scheduled to discharge from [facility] tx on this date and recommended to continue with outpatient counseling services to maintain gains made and prevent decompensation. Narrative Note: []
--- NOTE | 2020-06-25 15:22 | BH.MDN ---
Multi-Disciplinary Note - Note 45-min Individual Time Started:: 09:10 Date: 06/25/20 Time Stopped:: 09:50
== END 2020-06-25 16:40 | disposition home or self-care (01) ==
LOC: BHIOP 08:00
PROVIDERS: PCP Family Medicine; Referring Provider Psychiatry & Neurology Psychiatry; Visit Provider Psychiatry & Neurology Psychiatry
DX: F33.2 Major depressive disorder, recurrent severe without psychotic features (principal); F41.8 Other specified anxiety disorders; F50.2 Bulimia nervosa
CPT/HCPCS: H0035; 90834; 90853

== ENCOUNTER 2020-07-03 14:00 | Outpatient (RCR) | payer OTHER, SELFPAY ==
--- NOTE | 2020-07-03 14:37 | BH.MTP ---
Master Treatment Plan - Patient Information Program Physician:: Dr. Loren Sims Primary Therapist:: SANDRA Prado - Psychiatric Diagnoses Psychiatric Diagnoses:: Major depressive disorder, recurrent, severe without psychosis; generalized anxiety disorder; bulimia nervosa Diagnosis Code(s):: F33.2 - Estimated LOS Estimated LOS (in weeks):: 12 Problem/Goal #1 - Problem/Goal #1 Stated Goal:: Pt will maintain or see a reduction in symptoms AEB pt?s score on the DSM 5 cross-cutting measure and improve pt?s daily functioning. - Objectives Objective #1 Stated Objective: Pt will continue to consistently apply health coping skills and strategies to maintain progress made through the IOP treatment program. Interventions: Through group therapy, pt will review warning signs/ triggers, as well as healthy coping skills used in the IOP treatment program to successfully maintain gains while transitioning into outpatient therapy. Discharge Criteria: Pt will have met this goal when pt?s score on the DSM 5 cross cutting measure has successfully remained stable or decreased over a period of 12 weeks and per pt?s report. Target Date: 09/25/20 Review Date: 07/31/20 Objective #2 Stated Objective: Pt will learn and successfully implement two to three maintenance strategies to prevent decompensation through the Aftercare group. Interventions: Through groups therapy, pt will be provided with education on healthy maintains behaviors and relapse prevention techniques to prevent decompensation. Discharge Criteria: Pt will have met this goal when can report consistently using at least 2 maintenance skills to prevent decompensation. Target Date: 09/17/20 Review Date: 07/31/20
== END 2020-07-07 23:59 ==
LOC: BHOG 14:00
PROVIDERS: PCP Family Medicine; Referring Provider Psychiatry & Neurology Psychiatry; Visit Provider Psychiatry & Neurology Psychiatry
DX: F33.2 Major depressive disorder, recurrent severe without psychotic features (principal); F41.8 Other specified anxiety disorders; F50.2 Bulimia nervosa
CPT/HCPCS: 90853

== ENCOUNTER 2020-07-10 14:00 | Outpatient (RCR) | payer OTHER, SELFPAY ==
--- NOTE | 2020-07-10 14:00 | BH.SGPN.GN ---
Behaviors/Verbalizations/Mental Status: []Client alert and oriented, neatly dressed and groomed- wearing makeup. Eye contact good. Motor activity appropriate. Speech within normal limits. Affect unable to gather due to wearing a mask for COVID-19 protocol-appeared congruent AEB laughing, mood euthymic. Thoughts linear, logical, no signs of hallucinations or delusions. Client Response/Progress/Benefit: []Client responded well to session, checking in using GAPS. Client?s emotion today is ?fierce? and stated ?I?m nailing it lately? and reported she has been using a lot of self-love and positive self-talk. Client followed her gameplan and wrote her mantras from last group on her fridge. Client has been using grounding, self-talk, and journaling to manage mood. Receptive of discussion on self-talk and its influence in maintaining long-term mental health stability. Client shared personal benefits of practicing affirmations such as increased self-love and feeling happier. Provided strategies for improving effective creation and application of believable personal affirmations. Client wrote out two affirmation statements to put in her house. Statements were ?in this moment I am okay? and ?I deserve to love and accept myself.? Progress noted in client?s self-report of improved mood stability and confidence. Client to continue aftercare group to promote gains and further increase application of healthy coping skills. Narrative Note: []
--- NOTE | 2020-07-17 14:05 | BH.SGPN.GN ---
Addendum entered and electronically signed by Cherelle Russell LSW 07/21/20 14:20: Addendum to add missing MSE: Eye contact is good. Motor activity is appropriate. Appearance is casual. Speech is Appropriate. Mood is euthymic. Affect unable to assess as client wearing a mask per COVID-19 protocol. Thoughts are linear and logical. No evidence of psychosis. Original Note: Behaviors/Verbalizations/Mental Status: [] Client Response/Progress/Benefit: []Client responded well to session, checked in using her GAPs worksheet. Client identified making progress on goal of more actively saying positive affirmations, indicating that she has been using an amris which gives her a new one daily. Identified recent coping skills used as: thought challenging, affirmations, and being assertive at work by setting healthier boundaries to ensure time for personal self-care. Client shared a stressor today is struggling with guilt about establishing firmer boundaries at work. Did well to identify importance of healthy boundaries in preventing burnout. Client engaged well during the discussion of self-compassion. Noted connecting with the benefits of self-compassion and shared that for her it is much easier to be compassionate towards others than herself, but that she has been improving in this area. Client appeared to benefit from psychoeducation on the three elements of self-compassion and debunking common myths about what self-compassion is. Client engaged during discussion brainstorming various strategies to improve use of self-compassion. Identified wanting to use more self-compassionate affirmations by regularly reminding herself ?It?s okay to take time to rest and relax? and ?I?m allowed to say no to things?. Narrative Note: []
--- NOTE | 2020-07-31 16:48 | BH.TPR ---
Treatment Plan Review Date of Admission:: 07/03/20 Date of Treatment Plan Review:: 07/31/20 Admitting Diagnoses:: F33.2 Major depressive disorder, recurrent, severe without psychosis; generalized anxiety disorder; bulimia nervosa Current Diagnoses:: F33.2 Major depressive disorder, recurrent, severe without psychosis; generalized anxiety disorder; bulimia nervosa Patient's Response to Treatment:: Pt engaged in aftercare group AEB pt's consistent attendance, contributions in group and honest self-reflection. Pt listens attentively to peers, providing support and feedback to others. Pt did have to miss a session due to a medical issue. Status of Current Problems and Symptoms: Pt continues to report bouts of depression and anxiety but states she is better at managing her symptoms. Pt reports starting to feel like myself again which she explained means she is able to joke, laughs more often and feels happy at times. Pt reported she still has times in which she struggles with getting out of bed but uses her opposite action skill to help. Pt continues to struggle with low self-esteem and poor view of self. Problem #1 Problem Name:: Pt will maintain or see a reduction in mental health symptoms Status of Goals:: obj 1.: Client cancelled aftercare session the day of her treatment plan review as a result she did not complete a DSM 5 cross cutting measure survey. Per client's report she appears to be maintaining progress from IOP. Pt stated she has decrease in depressive symptoms and is able to apply her skills on a more consistent basis. Obj. 2: Complete with ongoing work encouraged. Client has consistently reporting increased use of opposite action, challenging negative thought patterns, and sitting with the uncomfortable. Pt appears to be benefiting from new maintenance skills learned and is encouraged to focus on continued skill consistency. Team Recommendations:: Recommended client continue IOP aftercare group in addition to attending regular outpatient counseling in order to maintain gains.
== END 2020-08-06 23:59 ==
LOC: BHOG 14:00
PROVIDERS: PCP Family Medicine; Referring Provider Psychiatry & Neurology Psychiatry; Visit Provider Psychiatry & Neurology Psychiatry
DX: F33.2 Major depressive disorder, recurrent severe without psychotic features (principal); F41.1 Generalized anxiety disorder; F50.2 Bulimia nervosa
CPT/HCPCS: 90853

== ENCOUNTER 2020-07-31 09:34 | Day surgery (SDC) | payer OTHER, SELFPAY ==
[2020-07-31] VITALS (8 sets, daily range): BP systolic 105–139; BP diastolic 76–102; PULSE 79–107; RESP 16–18; TEMP 36.3–37; O2SAT 94–100; BMI 28.3
--- NOTE | 2020-07-31 09:47 | RAD_ITS ---
STUDY: X-RAY CHEST REASON FOR EXAM: Female, 30 years old. PRE OP ANKLE FX TECHNIQUE: PA and lateral views of the chest. COMPARISON: Comparison is made with prior study dated 02/24/2018. FINDINGS: The lungs are clear and expanded. There is no demonstrated pleural abnormality. Normal size heart. Normal mediastinum and tiffanie. Normal visualized pulmonary arteries. Normal visualized aortic arch and descending thoracic aorta. Normal visualized thoracic spine. Normal visualized ribs, clavicles, and shoulders. There is no demonstrated abnormality of the visualized soft tissue structures of the upper abdomen. RAD/Chest PA and Lateral IMPRESSION: Normal x-ray examination of the chest. Electronically Signed: Collins Mauricio, at 10:18 EDT , Service support ,
[2020-07-31 10:26] LABS: Internal QC Validated? YES +Cl - CLEAR BKGD; Pregnancy, Urine Negative Negative
[2020-07-31 10:46] LABS: Bedside Glucose 113 mg/dL (70-110)
[2020-07-31] MEDS: Lactated Ringers 1,000 ML 100 ML IV ×3 (11:00→18:30)
[2020-07-31] MEDS: Cefazolin 2 GM in 0.9% Normal Saline 100 ML IV (14:01)
--- NOTE | 2020-07-31 14:10 | RAD_ITS ---
STUDY: X-RAY - RIGHT ANKLE REASON FOR EXAM: Female, 30 years old. ORIF TRIMALLEOLAR FX TECHNIQUE: Fluoroscopic guidance was provided in the OR. COMPARISON: None. FINDINGS: Endoscopic guidance was provided in the OR during performance of a internal fixation of a trimalleolar fracture. The dictation is for documentation purposes. No interpretation was performed. Please refer to the operative report for further details. RAD/Ankle min 3 Views IMPRESSION: Fluoroscopic guidance in the OR during the performance of a trimalleolar fracture repair Electronically Signed: Rad Tinajero DO at 23:22 EDT Tel [phone], Service support ,
[2020-07-31] MEDS: Bupivacaine Mpf 0.5% 30 ML VIAL (16:42)
--- NOTE | 2020-07-31 16:56 | PCM.DC.ORTHO ---
Discharge Diet: No Restrictions Discharge Activity: May Not Drive, May Not Shower, Use Walker, Use Crutches Weight Bearing Status: No weight bearing Keep extremity elevated above heart level: Right Leg Additional Activity Instructions:: 1. Keep dressing to right leg clean, dry, intact. Do not get dressing wet. Do not remove dressing. If get dressing wet, call office for further instruction. I recommend sponge bathing at this time. 2. Ice around right knee 30 minutes every hour as needed for pain. 3. Elevate right foot above level of heart at all times until further instructed. 4. No walking, placing weight on right foot or standing on right foot. Use crutches/walker/knee scooter for assistance. 5. Begin taking doxycycline (antibiotic) tomorrow, August 01, 2020 twice a day as instructed. 6. Begin taking aspirin tomorrow, August 01, 2020 twice a day as instructed. 7. Begin taking Percocet (pain medication) as needed today, July 31, 2020. May supplement with Tylenol. Do not take more than 3000 mg of Tylenol in a 24-hour period. 8. Follow-up in 1 week for further evaluation. Call office with any questions or concerns. Call your doctor if your incision/area has: Continuous Slow Oozing, Sudden Increased Bleeding Call your doctor if you observe: Fever of 101 or Higher, Coldness, Increased Pain, Inability to have a bowel movement, Shortness of breath, Chest pain, Increased palpitations (irregular heartbeat), Calf discomfort, Uncontrolled pain Cleanse incision/area with: Keep Dressing Clean & Dry Allergies/Adverse Reactions: Allergies azithromycin [From Zithromax] Allergy (Verified 07/31/20 10:18) Hives Medications to take at Discharge Norgestimate-Ethinyl Estradiol [Sprintec 28 Day Tablet] 1 tab PO DAILY 04/30/20 Desvenlafaxine Succinate [Pristiq] 100 mg PO DAILY 30 Days #30 tab 06/18/20 ALPRAZolam [Xanax] 0.25 mg PO BID PRN PRN 07/23/20 Ondansetron HCl [Zofran] 4 mg PO PRN PRN 07/23/20 Oxycodone HCl/Acetaminophen [Oxycodone-Acetaminophen 5-325] 1 - 2 ea PO Q4H PRN PRN 07/23/20 Primary Care Physician: Griselda Lou MD [Primary Care Provider] - Test Results: Test results from this visit will be discussed in further detail at your follow-up appointment, if applicable. Please Follow Up With: Nael Pisano DPM When: in one week in [place] office as previously scheduled Proposed Discharge Date: 07/31/20
--- NOTE | 2020-07-31 17:00 | OP.PCM_ITS ---
Problem List (1) Trimalleolar fracture of right ankle Status: Acute Qualifiers: Encounter type: initial encounter Fracture type: closed Qualified Code(s): S82.851A - Displaced trimalleolar fracture of right lower leg, initial encounter for closed fracture Report of Operation Date of Procedure: 07/31/20 Pre-Operative Diagnosis: 1. Right ankle trimalleolar fracture, closed. 2. Right ankle joint dislocation Post-Operative Diagnosis: Same as preoperative Surgery/Procedure Performed:: 1. Open reduction with internal fixation of right ankle trimalleolar fracture. 2. Right ankle joint reduction of dislocation Description of Surgical Findings:: Consistent with diagnosis. Reduction of deformity achieved and held with internal fixation. Difficulty in reducing the medial malleolus fragment due to its size. tax commissioner: Shanika Orozco NP Type of Anesthesia:: General/Regional - with a popliteal block given preoperatively to the right lower extremity and a saphenous block given intraoperatively to the right lower extremity Anesthesiologist: Сергей Maxwell Special Medications: 2 grams of ancef given preoperatively Specimen's removed: None Drains: None Estimated Blood Loss (mL): 25 Description of Procedure: Hemostasis: Pneumatic thigh tourniquet placed to the level of the right thigh at 275 mmHg for 120 minutes Materials: #1. Arthrex tight rope. 2. Arthrex 8 hole recon plate for the lateral fibula. 3. Arthrex 3.5 x 12 mm cortical screw x2. 4. Arthrex 3.5 x 14 mm cortical screw. 5. Arthrex 3.5 x 16 mm cortical screw. 6. Arthrex 3.5 x 18 mm cortical screw. 7. Arthrex 3.5 x 14 mm locking screw x2. 8. Arthrex 2.5 x 30 mm compression screw. 9. Size 0 Vicryl. 10. Size 2-0 Vicryl. 11. Size 3-0 Vicryl. 12. Size 3-0 nylon. Injectables: 5 mL of 0.5% Marcaine plain was distributed a proximal saphenous nerve block fashion. Complications: Significant difficulty in reducing the medial malleolus fracture due to the size. Condition: Stable Indications: Patient is a 30-year-old female who suffered an injury to her right ankle on July 18, 2020. [facility], and tripped and fell. She felt immediate pain in her right ankle along with a deformity. Patient presented to the emergency department at that time, and was diagnosed with a right ankle fracture. Patient was then sent to me for evaluation and the first time evaluating the patient was on July 21, 2020. At that time, x- rays were taken, revealing a trimalleolar ankle fracture of the right ankle. Furthermore, there was significant swelling present in the area. I discussed with the patient treatment options at that time, with conservative being placed in a nonweightbearing below the knee cast. Surgical intervention will include an open reduction with internal fixation of the right ankle trimalleolar fracture. Due to the fractures that were present along with the deformity, I recommended surgical intervention. I discussed the risks, benefits, possible outcomes, possible complications of the procedure. These included but not limited to delayed or nonhealing wounds, delayed or nonhealing bone, DVT, infection, decreased function of limb, continued pain, damage to surrounding structures, loss of limb, loss of life. All the patient's questions were answered to her satisfaction and all of her concerns were addressed. No guarantees were made as to the outcome of the procedure. Patient understood all aspects of the procedure, and patient was agreeable to proceed with surgical intervention. Due to the swelling present, it was determined to delay the surgery. A preoperative CT scan was ordered for surgical planning and to assess the fractures. The posterior malleolus fracture appeared small in nature. I saw the patient back in my office on Tuesday, July 28, 2020 for an edema check. There was noted to be significant reduction in edema at that time. After reviewing the CT scan with her, it was determined that surgical intervention would be performed today, July 31, 2020. Operative report: Before the patient was brought to the operating room, the risks, benefits, possible outcomes, possible complications of the procedure were discussed with the patient once again. These include but not limited to delayed or nonhealing wounds, delayed or nonhealing bone, DVT, infection, decreased function of limb, continued pain, damage to surrounding structures, loss of limb, loss of life. All the patient's questions were answered to her satisfaction and all of her concerns were addressed. No guarantees were made as to the outcome of the procedure. Patient understood all aspects of the procedure, and consent was then signed by the patient. Before the patient was brought to the operating room, the anesthesiologist administered a popliteal block to the right lower extremity. Patient was then brought to the operating room and placed on the operating table in the supine position. After timeout, once general anesthesia was obtained and anesthesia took control of the airway and IV access, a well- padded pneumatic thigh tourniquet was placed the level of the right thigh. The right foot, ankle, leg were then scrubbed, prepped, draped in the usual sterile manner. At this time, radiograph evaluation was used to determine the level of the distal aspect of the lateral malleolus, lateral malleolus fracture, ankle joint line, syndesmosis, and medial malleolus fracture. These were all marked on the patient. Next, the right foot, ankle, leg were then elevated and exsanguinated via Esmarch and inflation of pneumatic thigh tourniquet was performed to 275 mmHg. Attention was then directed to the lateral aspect of the right ankle. At this time, a #15 blade was used to perform a linear longitudinal incision starting at the lateral aspect of the distal one third of the fibular shaft extending distally to the distal tip of the lateral malleolus. This incision was deepened utilizing sharp and blunt dissection. Care was taken to retract all vital neural and vascular structures. All bleeders were cauterized and ligated as necessary. At this time, a linear periosteal incision was made in line with the original skin incision. The periosteal and capsular structures were then reflected anteriorly and posteriorly, thus exposing the fractured fibula at the operative site. This time, a curette was used to remove any fibrous tissue contained within the fracture fragment site. The surgical site was irrigated with copious amounts of normal sterile saline. Next, the fibula fracture was reduced and held via temporary fixation. Radiograph evaluation was then performed. The fibula was noted to be out the length at this time and the fibular fracture was noted to be reduced when compared to preoperative assessment. This was then held via temporary fixation. At this time, an Arthrex cortical screw was used as an interfragmentary screw and inserted in standard AO fixation as perpendicular to the fracture as possible. Of note during insertion of the screw was the adequate compression of the fracture fragments. Furthermore, no shifting of the fragments occurred during insertion of the screw. Once the screw was fully inserted, all temporary fixation was then removed. Radiograph evaluation was then performed. The interfragmentary screw was noted to hold the fibula in the correct the reduced position. At this time, the Arthrex 8 hole plate was placed over the lateral aspect the fibula and held via temporary fixation. Radiograph evaluation was performed to determine the exact positioning of the plate. Once adequate positioning was had, this was held to the lateral aspect of the fibula via a mixture of nonlocking and locking screws. Of note during insertion of the screws was the adequate compression of the plate to the bone. Furthermore, no shifting any of the plate or fracture fragments occurred during insertion of the screws. Care was taken make sure to leave the screw hole open for the Arthrex tight rope. Once all screws were fully inserted, radiograph evaluation was then performed. The fibula was noted to be well adhered to the bone at this time and all screws were noted to neither be too long or too short. The internal fixation was noted to hold the fibula in the corrected reduced position. At this time, the cotton and hook test were performed under live radiographic evaluation to assess the syndesmosis. Widening and instability of the syndesmosis was noted. At this time, the drill for the Arthrex tight rope was drilled from lateral to medial through the open hole in the fibular plate coinciding with the syndesmosis in standard fashion. The Arthrex tight rope was then inserted in standard fashion through the lateral fibula into the medial tibia angle 30 degrees. At this time, the tibiofibular joint was reduced and the Arthrex tight rope was tied down appropriately. Radiograph evaluation was then performed. There was increasing tibiofibular overlap noted when compared to preoperative assessment. The tibiofibular joint was noted to be reduced at this time. Attention was then directed the medial aspect of the right ankle in the area of the medial malleolus fracture. At this time, a curvilinear incision was made starting at the midportion of the medial malleolus extending distally to the distal tip of the medial malleolus. This incision was deepened utilizing sharp and blunt dissection. Care was taken retract all vital neural and vascular structures. All bleeders were cauterized and ligated as necessary. At this time, incision was made in line with the original skin incision and the deltoid ligament. The deltoid ligament was then reflected anteriorly and posteriorly, thus exposing the medial malleolus fracture at the operative site. This time, the medial malleolar fracture proved difficult to reduce to to its size and nature of the fragment. Once adequate reduction was had, this was held in place via the Arthrex compression screw. Of note during insertion of the screw was adequate compression of the medial malleolus fracture. Furthermore, no shifting any of the fragment occurred during insertion of the screw. Once the screw was fully inserted, all temporary fixation was removed. The screw holding the medial malleolus fracture was noted to hold this fracture in a reduced position. At this time, radiographic evaluation was then performed. The ankle joint mortise was noted to be intact at this time. A reduction in the fibular and the medial malleolar fractures was noted. A reduction of the tibiofibular joint was noted as well. Evaluation was then performed of the posterior malleolus fracture. It was deemed less than 25% of the articulating surface of the ankle joint and was reduced when compared to preoperative assessment. Due to this, it was determined that this would not need to be fixated. Each surgical site was then irrigated with copious amounts of normal sterile saline. At this time, the pneumatic thigh tourniquet was then released and a prompt hyperemic response noted to the entirety of the right lower extremity. All bleeders were cauterized and ligated as necessary. For the medial surgical site, the deltoid ligament was reapproximated coapted utilizing size 0 Vicryl. The subcutaneous tissues were reapproximated coapted utilizing size 3-0 Vicryl. The skin was reapproximated coapted utilizing size 3-0 nylon in horizontal mattress and simple interrupted fashion. For the lateral surgical site, the periosteal capsular structures were reapproximated coapted utilizing size 0 Vicryl. The subcutaneous tissue was reapproximated coapted utilizing size 2-0 Vicryl and 3-0 Vicryl. The skin was reapproximated coapted utilizing size 3-0 nylon in a simple interrupted and horizontal mattress fashion. Each surgical site was then dressed with Betadine soaked gauze, and a dry sterile dressing setting of 4 x 4 gauze, ABD pads, wrapped with Kerlix. The right foot and ankle were then wrapped with an Krystian bandage. Next, a stockinette was placed over the right lower extremity. Cast padding was wrapped from the metatarsal heads extending proximally to level just distal to the tibial tuberosity. A posterior splint was fashioned to the right lower extremity and was adhered to the right lower extremity utilizing Krystian bandages. Neurovascular status was assessed at the end the application and deemed intact to the right lower extremity. Care was taken make sure the foot and ankle held in neutral position as the posterior splint dried. The patient tolerated the anesthesia and procedure well and was transported to the PACU with vital signs stable neurovascular status intact to the right lower extremity. After period of postoperative monitoring, patient will be discharged home with written and oral instructions for wound care and follow-up. The surgical assistant, the nurse practitioner, was utilized at the entire procedure. She helped with patient positioning, holding of limb, holding of retractors. She helped with exposure throughout. She helped with bandage application, and cast application. Without the surgical assistant, surgical time would have been increased and surgical outcome could have been less optimal. - Complications Difficulty in reducing the medial malleolus fracture due to its size. - Admit VTE Documentation VTE Present on Admission: No VTE Mechan Device Prophylaxis: SCD's VTE Pharm Prophylaxis ordered?: Yes
--- NOTE | 2020-07-31 18:40 | RAD_ITS ---
STUDY: X-RAY - RIGHT ANKLE REASON FOR EXAM: Female, 30 years old. post op right ankle TECHNIQUE: 3 view(s) of the ankle. COMPARISON: Intraoperative images of earlier this date FINDINGS: There is internal stabilization with plate and multiple screws of distal fibular fracture. There is stabilization of the distal tibiofibular relationship. There is internal stabilization with screw transverse medial malleolar fracture. Normal tibiotalar articulation and ankle mortise. Normal visualized talus and calcaneus. The visualized subtalar, talonavicular, calcaneocuboid and tarsal articulations are normal. The soft tissue structures are unremarkable. RAD/Ankle min 3 Views IMPRESSION: Internal stabilization with plate and multiple screws of distal fibular fracture. Internal stabilization of the transverse medial malleolar fracture with single screw. This fracture appears in good alignment. Electronically Signed: Benjamín Brown MD at 18:59 EDT , Service support ,
[2020-07-31] MEDS: HYDROcodone Bitartrate/Apap 5/325 Tablet PO (19:07)
== END 2020-07-31 20:49 | disposition home or self-care (01) ==
LOC: SDC 09:36 → AC 09:42
PROVIDERS: Anesthesiology; PCP Family Medicine; Referring Provider Podiatrist Foot & Ankle Surgery; Visit Provider Podiatrist Foot & Ankle Surgery
PROC: (CPT 27822; principal; 2020-07-31 10:45)
DX: S82.851A Displaced trimalleolar fracture of right lower leg, initial encounter for closed fracture (principal); W18.09XA Striking against other object with subsequent fall, initial encounter; Y93.01 Activity, walking, marching and hiking; Y92.9 Unspecified place or not applicable; Y99.8 Other external cause status; F32.9 Major depressive disorder, single episode, unspecified; F41.9 Anxiety disorder, unspecified; F17.210 Nicotine dependence, cigarettes, uncomplicated; Z11.59 Encounter for screening for other viral diseases
CPT/HCPCS: 01480; 27822; 64445; 71046; 73610; 76000; 81025; 82962; 87635; C1713; C9803; J7120; J2405; U0003

== ENCOUNTER 2020-08-07 14:05 | Outpatient (RCR) | payer OTHER, SELFPAY ==
[2020-07-31 10:21] VITALS: BMI 28.3
--- NOTE | 2020-08-07 14:05 | BH.SGPN.GN ---
Addendum entered and electronically signed by Cherelle Russell LSW 08/08/20 12:15: This psychotherapy group was provided via telehealth using two-way, real-time interactive telecommunication technology between the patients and the provider. The interactive telecommunication technology included audio and video. The patient was offered telemedicine as an option for care delivery during the COVID-19 pandemic and consented to this option. Patient location: [place] Provider located at [facility] Original Note: Behaviors/Verbalizations/Mental Status: []Client alert and oriented, casually dressed and groomed. Eye contact good. Motor activity appropriate. Speech within normal limits. Affect congruent, mood euthymic. Thoughts linear, logical, no signs of hallucinations or delusions. Client Response/Progress/Benefit: [] Pt responded well to session, provided input and listened attentively to peers. Reported feeling ?perseverant? today as she has been taking steps to more intentionally apply skills for maintaining mental health progress while recovering from recent ankle surgery. Reports she has been making efforts to reach out to supports and actively accept help which is progress for her as well. Indicated plans to continue to work on practicing gratitude as well. Pt engaged in discussion on self-advocacy. Pt worked with group to identify the benefits of self-advocacy, as well as common barriers. Identified a personal barrier as feeling she does not deserve to advocate for herself which has led to putting others first in the past. Again worked with group to identify strategies to increase ability to advocate for oneself. Pt reported she wants to work on reminding herself of the importance of prioritizing her own needs. Pt seemed to benefit from reviewing treatment progress and skill application, as well as learning about how to increase self-advocacy. Pt to continue aftercare program to maintain treatment progress, continue use of self-accountability in maintaining healthy coping, and prevent decompensation. Narrative Note: []
--- NOTE | 2020-08-21 14:00 | BH.SGPN.GN ---
This psychotherapy group was provided via telehealth using two-way, real-time interactive telecommunication technology between the patients and the provider.?The interactive telecommunication technology included audio and video.? ?The patient was offered telemedicine as an option for care delivery during the COVID-19 pandemic and consented to this option. ?Patient location: [place] ?Provider located at [facility] Behaviors/Verbalizations/Mental Status: []Client alert and oriented, neatly dressed and groomed. Eye contact fair. Motor activity appropriate. Speech within normal limits. Affect congruent, mood euthymic. Thoughts linear, logical, no signs of hallucinations or delusions. Client Response/Progress/Benefit: []Client responded well to session, actively contributing. Client stated she has been doing a lot better since last time attending aftercare. Client reported she has been more patient with herself and has a more positive mindset. Client has been using thought challenging, gratitude journaling, and meditation to cope with symptoms and stressors this week. Client contributed to the discussion on gratitude and its benefits. Client attentive during discussion of internal vs. external gratitude. Client receptive to participating in the group seven-day gratitude challenge. Client selected one gratitude reflection per day and stated she will implement this through writing. Receptive to discussion on intentionality and self-accountability. Client shared she will hold herself accountable by doing this before she reads and goes to bed every night. Appeared to benefit from connecting with peers and practicing gratitude. Client will continue IOP aftercare to promote mood stability and reinforce healthy coping skills. Narrative Note: []
--- NOTE | 2020-08-28 13:00 | BH.TPR ---
Treatment Plan Review Date of Admission:: 07/03/20 Date of Treatment Plan Review:: 08/28/20 Admitting Diagnoses:: F33.2 Major depressive disorder, recurrent, severe without psychosis; generalized anxiety disorder; bulimia nervosa Current Diagnoses:: F33.2 Major depressive disorder, recurrent, severe without psychosis; generalized anxiety disorder; bulimia nervosa Patient's Response to Treatment:: Client engaged in aftercare group AEB client?s mostly consistent attendance, contributions in group and honest self-reflection. Client listens attentively to peers, providing support and feedback to others. Client is encouraging to herself and peers which increases accountability. Status of Current Problems and Symptoms: Client continues to report bouts of depression and anxiety but states she is better at managing her symptoms. Client consistently reports practicing self-compassion, journaling, and opposite action. Client struggles at times with negative self-talk, but client reports actively combating these thoughts. Client has had to cancel twice due to work which could present as a barrier to maintenance and aftercare attendance. Problem #1 Problem Name:: Pt will maintain or see a reduction in mental health symptoms Status of Goals:: obj 1.: Client cancelled aftercare session the day of her treatment plan review as a result she did not complete a DSM 5 cross cutting measure survey. Per client's report she appears to be maintaining progress from IOP. Client stated she has decrease in depressive symptoms and is able to apply her skills on a more consistent basis. Obj. 2: Complete with ongoing work encouraged. Client has consistently reporting increased use of opposite action, challenging negative thought patterns, and practicing self-compassion on ?low? days. Client appears to be benefiting from new maintenance skills learned and is encouraged to focus on continued skill consistency. Team Recommendations:: Recommended client continue IOP aftercare group in addition to attending regular outpatient counseling in order to maintain gains.
--- NOTE | 2020-09-04 14:05 | BH.SGPN.GN ---
Behaviors/Verbalizations/Mental Status: [] Client alert and oriented, casual dress, hygiene tended to. Eye contact good. Motor activity appropriate. Speech within normal limits. Affect congruent, mood euthymic. Thoughts linear, logical, no signs of hallucinations or delusions. Client Response/Progress/Benefit: []Pt attentive and provided input throughout. Noted feeling ?content? today as she continues to feel she is making progress in regards to asking and accepting help, speaking kindly to herself, and gaining more emotional independence. Discussed feeling more accomplished and self-confident as a result. Pt shared use of positive affirmations and a regular gratitude journal as most beneficial to sustaining areas of current progress. Pt engaged in group discussion reviewing the mental health benefits of establishing a consistent daily routine. Group identified benefits to include: improving sense of purpose, increasing self-confidence, reducing stress, and improving follow through. Connected with discussion on common barriers impacting routine follow-through and engaged in brainstorming strategies to overcome identified barriers. Shared that giving herself a small reward for accomplishing aspects of her routine helps to keep her on track with her routine. Pt identified wanting to improve her current routine by starting small with establishing a consistent wake up tie of 8:30am each morning. Shared this will help to support her mental health by preventing from feeding into the desire to sleep all day when she does start to struggle. Pt seemed to benefit from support provided by peers and reviewing the mental health benefits of routine. Progress noted in pt self-reports of improved sx management during times of increased stress and more consistent application of self-compassion. Pt to continue aftercare group to improve consistent use of healthy coping, maintain gains, and prevent decompensation. Narrative Note: []
== END 2020-09-06 23:59 ==
LOC: BHOG 14:05
PROVIDERS: PCP Family Medicine; Referring Provider Psychiatry & Neurology Psychiatry; Visit Provider Psychiatry & Neurology Psychiatry
DX: F33.2 Major depressive disorder, recurrent severe without psychotic features (principal); F41.1 Generalized anxiety disorder; F50.2 Bulimia nervosa
CPT/HCPCS: 90853

== ENCOUNTER 2020-09-25 14:00 | Outpatient (RCR) | payer OTHER, SELFPAY ==
[2020-07-31 10:21] VITALS: BMI 28.3
--- NOTE | 2020-09-25 14:01 | BH.SGPN.GN ---
Behaviors/Verbalizations/Mental Status: [] Client alert and oriented, casual dress, hygiene tended to. Eye contact good. Motor activity appropriate. Speech within normal limits. Affect congruent, mood euthymic. Thoughts linear, logical. No signs of hallucinations or delusions. Client Response/Progress/Benefit: [] Client responded well to session, attentive and engaged throughout. Client reported she has been actively working on goal to continue improving self-care. Expressed making some progress continued progress in this area, though at times struggles with asking for help. Identified skills used to work towards goal as: opposite action, reframing thoughts, engaging more in activities she enjoys, as well as reaching out to supports. Client stated stressor today as ongoing frustrations related to not being able to drive. Expressed trying to use thought challenging and reminding herself her supports want to help to help reduce this stressor. Actively listened during discussion on making healthy choices and the barriers that prevent doing so. Client identified personal barriers to be: fear of the unknown, difficulties accepting help, and negative thoughts. Client attentive throughout discussion of strategies to improve healthy decision making. Noted wanting to improve decision making regarding self-compassion and selected the strategy of more actively challenging negative or self-deprecating thoughts as the game plan for the week. Appeared to benefit from reflecting on application of coping skills, identifying barriers, and creating a game plan to improve healthy decision-making skills. Narrative Note: []
--- NOTE | 2020-09-25 16:46 | BH.MTP_ITS ---
Treatment Plan Review Date of Admission:: 07/03/20 Date of Treatment Plan Review:: 09/25/20 Admitting Diagnoses:: F33.2 Major depressive disorder, recurrent, moderate without psychosis; generalized anxiety disorder; bulimia nervosa Current Diagnoses:: F33.2 Major depressive disorder, recurrent, moderate without psychosis; generalized anxiety disorder; bulimia nervosa Patient's Response to Treatment:: Client is engaged in IOP aftercare as evide nced by client's participation in group discussions, self-report of consistently applying coping skills, and self-report of improved mood stability. Status of Current Problems and Symptoms: Client is overall doing well with managing daily stressors and applying coping skills. Client does continue to struggle occasionally with asking for help from supports, reports work stress, and has ongoing frustrations with not being able to drive due to her ankle injury. Problem #1 Problem Name:: Pt. will maintain or see a reduction in sx AEB client score on the DSM-5 Status of Goals:: Objective 1- complete with ongoing work encouraged. Unable to administer the DSM-5, but per client?s self-report, client?s depression and a nxiety symptoms are mild. Objective 2- complete with ongoing work encouraged. Client has been consistently reporting use of self-compassion, journaling, setting routines, self-care, crafting, and thought challenging to manage stressors and symptoms. Team Recommendations:: Team recommends pt continue IOP aftercare group in addition to attending regular outpatient counseling in order to promote mood stability and emotional regulation.
== END 2020-10-06 23:59 ==
LOC: BHOG 14:00
PROVIDERS: PCP Family Medicine; Referring Provider Psychiatry & Neurology Psychiatry; Visit Provider Psychiatry & Neurology Psychiatry
DX: F33.2 Major depressive disorder, recurrent severe without psychotic features (principal); F41.8 Other specified anxiety disorders; F50.2 Bulimia nervosa
CPT/HCPCS: 90853

== ENCOUNTER 2020-10-09 14:00 | Outpatient (RCR) | payer OTHER, SELFPAY ==
[2020-07-31 10:21] VITALS: BMI 28.3
--- NOTE | 2020-10-09 14:00 | BH.SGPN.GN ---
This psychotherapy group was provided via telehealth using two-way, real-time interactive telecommunication technology between the patients and the provider.?The interactive telecommunication technology included audio and video.? ?The patient was offered telemedicine as an option for care delivery during the COVID-19 pandemic and consented to this option. ?Patient location: [place] ?Provider located at [facility] Behaviors/Verbalizations/Mental Status: []Client alert and oriented, casually dressed and groomed. Eye contact good. Motor activity appropriate. Speech within normal limits. Affect congruent, mood euthymic. Thoughts linear, logical, no signs of hallucinations or delusions. Client Response/Progress/Benefit: []Client responded well to session, checking in using GAPS. Client?s emotion today is ?productive? and stated she has been maintaining a consistent routine which is going ?really good.? Client reported multiple wins including reading more books, trying new hobbies like embroidery, and sticking with habits. Client states using opposite action and reframing to cope with stressors of COVID and Christoph. Receptive of discussion on self-talk and its influence in maintaining long-term mental health stability. Client shared personal benefits of practicing affirmations such as increased self-compassion and confidence. Contributed to strategies for improving effective creation and application of believable personal affirmations. Client?s affirmational statements were ?I?m doing my best and that?s good enough? and ?things will work out.? Progress noted in client?s self-report of improved mood stability and confidence in self. Client to continue aftercare group to promote gains and further increase application of healthy coping skills. Narrative Note: []
--- NOTE | 2020-10-23 13:41 | BH.DS_ITS ---
Discharge Summary - Demographics Date of Admission:: 07/03/20 Discharge Date: 10/23/20 Presenting Problems at Admission:: Client discharged from IOP tx and transitioned to IOP aftercare to maintain gains client made in IOP and to reinforce healthy coping skills. At admission to IOP aftercare, client reported experiencing slight symptoms of anxiety and depression. Client was also experiencing life stressors including work, COVID, and maintaining mental health gains. Client also continued to experience negative thinking of reduced intensity and was continuing to work on building self-esteem. Despite these stressors, client reported ability to cope with her mental health and was activity using healthy skills. Discharge Diagnoses:: Major depressive disorder, recurrent, severe without psychosis F33.2; generalized anxiety disorder; bulimia nervosa Reason for Discharge:: Client has accomplished her tx goals AEB her ability to maintain mood stability and gains made in IOP. Client will transition to traditional outpatient counseling. - Treatment Progress During Treatment & Response: Client was engaged in IOP aftercare as evidenced by client's participation in group discussions and self-report of consistently applying coping skills. Client reported ?ups and downs? during tx, but overall client was positive and reported mood stability. At discharge, client?s overall DSM-5 scores were within the slight range. Client denied any symptoms of anxiety and her score for depression was slight meaning ?less than a day or two? in the past two weeks. Additionally, client was reporting an improved mood, more positive thinking patterns, increased self-love, consistent use of healthy coping skills, increased engagement in hobbies, and better self- boundary setting skills. Issues Still to be Addressed:: Client plans to continue working on building self-esteem, increasing self-love, and combating negative thoughts. Client can also benefit from maintaining a work-life balance to promote mood stability and self-care. Discharge Recommendations/Instructions:: Client is encouraged to follow up with her outpatient therapist, Barbara Sommer, as well as her outpatient psychiatrist for medication management. Discharge Handout: Complete Discharge Handout with client on aftercare options and continuity of care.
--- NOTE | 2020-10-23 14:00 | BH.SGPN.GN ---
Behaviors/Verbalizations/Mental Status: []Client alert and oriented, neatly dressed and groomed. Eye contact good. Motor activity appropriate. Speech within normal limits. Affect congruent, mood euthymic. Thoughts linear, logical, no signs of hallucinations or delusions. Client Response/Progress/Benefit: []Client responded well to session, checked in using her GAPs worksheet. Client identified recent coping skills she has used to be self-reflection, boundary setting, family time, and self-compassion. Client reports work and the holidays as a stressor. Client?s last day of aftercare and shared feeling grateful and confident. Client engaged well during the discussion of the components of self-compassion. Client connected with the benefits of self-compassion and shared self-compassion has been very beneficial for her. Client participated in the activity of reframing a recent setback using self-compassion. Client used the example of forgetting her friend?s birthday. Client was able to reframe this situation using self-compassion and stated ?I made a mistake and forgetting is not a reflection of your friendship.? Client appeared to benefit from practicing self-compassion and reflecting on her personal progress. Will discharge from aftercare and continue traditional outpatient counseling. Narrative Note: []
== END 2020-11-06 23:59 ==
LOC: BHOG 14:00
PROVIDERS: PCP Family Medicine; Referring Provider Psychiatry & Neurology Psychiatry; Visit Provider Psychiatry & Neurology Psychiatry
DX: F33.2 Major depressive disorder, recurrent severe without psychotic features (principal); F41.1 Generalized anxiety disorder; F50.2 Bulimia nervosa
CPT/HCPCS: 90853

== ENCOUNTER → 2022-03-02 | Outpatient (CLI) | payer OTHER, SELFPAY ==
[2022-03-04 21:07] LABS: Chlamydia By Nucleic Acid AMP Negative (Negative)
[2022-03-05 12:52] LABS: Gonococcus By Nucleic Acid AMP Negative (Negative)
== END | disposition home or self-care (01) ==
PROVIDERS: PCP Family Medicine; Visit Provider Family Medicine
DX: Z20.9 Contact with and (suspected) exposure to unspecified communicable disease (principal)
CPT/HCPCS: 87491; 87591

== ENCOUNTER → 2024-01-06 | Outpatient (CLI) | payer OTHER, SELFPAY ==
--- NOTE | 2024-01-06 08:45 | BI_ITS ---
MAMMOGRAPHY - BILATERAL DIAGNOSTIC REASON FOR EXAM: Female, 33 years old. 6 month history of palpable lump in the upper anterior lateral aspect of the left breast. PERTINENT HISTORY: Aunt with breast cancer. TECHNIQUE: Digital bilateral breast myriam (3D mammographic acquisition) in the CC and MLO projections. 2-D mediolateral oblique (MLO) and craniocaudad (CC) views of both breasts were obtained. CAD: Full Field Digital Mammography with Computer Added Detection was performed. COMPARISON: None. Baseline examination. FINDINGS: Breast Composition: There are scattered areas of fibroglandular density. There are no dominant masses or suspicious calcifications. Bilateral nipple piercings. No other significant abnormalities are identified. BI/DIAG MAMM W/CAD, BILAT IMPRESSION: Negative diagnostic mammogram. With the patient''s history of a palpable lump in the left breast, targeted ultrasound correlation is recommended. ASSESSMENT CATEGORY: Approximately 10% of breast cancers are not detected by mammography. A normal mammogram should not delay biopsy of a clinically suspicious abnormality. Electronically Signed: Collins Mauricio MD at 9:44 EST ,
--- NOTE | 2024-01-06 08:46 | US_ITS ---
STUDY: ULTRASOUND BREAST - LEFT REASON FOR EXAM: Female, 33 years old. Palpable lump left breast. TECHNIQUE: Axial and longitudinal images of the LEFT breast were performed with a high resolution ultrasound transducer. # OF IMAGES: 15 COMPARISON: Comparison is made with prior mammogram done earlier today. FINDINGS: LEFT Breast: The upper outer quadrant of the left breast was examined with ultrasound. There is scattered fibroglandular tissue. No sonographic abnormality is seen. US/Breast Limited Unilateral IMPRESSION: No sonographic abnormality is seen. ASSESSMENT CATEGORY: BIRADS Category 1: Negative. A letter regarding these results will be sent to the patient by the facility within 30 days. Electronically Signed: Collins Mauricio MD at 14:28 EST ,
--- OUTSIDE RECORDS SUMMARY | 2024-01-06 09:06 | XMS RPT_ITS | CCD ---
Author Name Unknown Address [address] [place] [id number] Organization [facility] Care Team Providers Care Medical Office Professional Instructor Name Role Phone REFERRING, PHY WO ID Attending Unavailable Results Test Name Value Interpretation Reference Range Facil ity Encounters Encounter Date Encounter Type Care Provider Facility Start: 05-30-2023 End: 05-31-2023 ambulatory PHY WO ID REFERRING Facility:B Payers Date Payer Category Payer Unknown [id number] 1990 Unknown [id number] Progress note 02-19-2021 Note Date & Type Note Facility 02-19-2021 Note HNO ID: [id number] Author: Cara Montes Service: ? Author Type: Physician Type: Progress Notes Filed: 02/19/2021 3:21 PM Note Text: Corry presents today for IUD insertion for contraception. No LMP recorded (lmp unknown). (Menstrual status: IUD). GC/chlamydia: Not done: no risk factors and/or patient declines screening test: negative Side effects including irregular bleeding were discussed with the patient. The patient understands that it should be removed in 6 years or sooner if the patiient desires a . IUD source: office provided IUD lot #: [id number] Exp date: 03/06/2023 UNIVERSAL PROTOCOL / SAFETY CHECKLIST Procedure to be performed: Mirena IUD insertion Sign in Communication: Completed Time Out: Team Confirms the Correct Patient, Correct Procedure, Correct Site and Site Marking, Correct Position (if applicable), Prep and Dry Time (if applicable). Time: Affirmation of Time Out: YES Sign Out Discussion: Completed Cara Montes MD The uterus sounded to 8 cm and the uterus is Midposition.. After prepping the cervix with betadine and 10cc of 1% lidocaine with epinephrine used for paracervical block- and using sterile technique, the Mirena IUD was inserted without difficulty and the string was cut to 2.5cm from the external os of the cervix. Patient tolerated procedure well- VERY ANXIOUS PLAN: Patient was advised to observe for signs and symptoms of infection including but not limited to fever, malodorous vaginal discharge and/or pain. The patient was told to check the string monthly for accurate placement. Bleeding expectations were reviewed. Follow up in one month. Cara Roldan MD [facility] Clinical Note 01-29-2021 Note Date & Type Note Facility 01-29-2021 Note ADDITIONAL PROCEDURES PRESENT Specimen originated from [facility] Specimen #: [id number] Submitting Physician: MATTHEW ANAND SPECIMEN SUBMITTED A: CERVICAL, SCREENING, FLUID FINAL DIAGNOSIS A. CERVICAL, SCREENING, FLUID Satisfactory for interpretation. Negative for intraepithelial lesion or malignancy. Acute inflammation. Predominance of coccobacilli consistent with shift in vaginal roberto carlos. MARIA INES Muñiz(ASCP) (Electronic Signature) ADDITIONAL PROCEDURE(S) HUMAN PAPILLOMA VIRUS Date Ordered: 01/30/2021 Date Reported: 02/02/2021 Procedure Results and Interpretation Negative for HPV DNA high risk type 16 by PCR. Negative for HPV DNA high risk type 18 by PCR. Negative for HPV DNA high risk types: 31,33,35,39,45,51,52,56,58,59,66,68 by PCR. This test was developed and its performance characteristics determined by [facility] [place] ([facility]). It has not been cleared or approved by the FDA. [facility] is regulated under CLIA as qualified to perform high-complexity testing. This test is used for clinical purposes. It should not be regarded as investigational or for research. CLINICAL DATA ROUTINE EXAM, HPV Testing: Yes, automatic HPV patients over 30 Date of Last Menstrual Period: None STAINS A: CERVICAL, SCREENING, FLUID THIN PREP HEALTHCARE RISK CONTROL CONSULTANT Jamel Abbott M.D., Extruder Operator Date of Report: 02/04/2021 Date of Procedure: 01/29/2021 Date of Receipt: 01/30/2021 Submitted by: MATTHEW ANAND Location: [facility] Diagnostic interpretation performed at [facility], [address] [place] [address]. CLIA Number: [id number] The Pap Smear is a screening test for cervical cancer. False negative results occur with all screening tests, emphasizing the need for rescreening at recommended intervals, and clinical correlation. [facility] Progress note 01-29-2021 Note Date & Type Note Facility 01-29-2021 Note HNO ID: [id number] Author: Matthew Anand Service: ? Author Type: Nurse Practitioner Type: Progress Notes Filed: 01/29/2021 1:47 PM Note Text: Corry is a 30 year old who presents for an annual gynecologic exam without complaints. Pt would like to have the Mirena inserted, she is wanting to be numb or put to sleep . Menses: no menses - continuous OCPs. Contraception: combined hormonal contraceptives HPV vaccine: Yes Last Pap: 07/24/2019 normal HPV: 06/06/2018 negative History of abnormal pap: Yes Last mammogram: never Sexually active: not currently Pain with intercourse: No Postcoital bleeding: No OB History T0 L0 SAB0 TAB0 Ectopic0 Multiple0 Live Births0 PAST MEDICAL HISTORY Diagnosis Date - Depression 12/11/2013 - LGSIL (low grade squamous intraepithelial dysplasia) 04/18/2014 - Methicillin susceptible Staphylococcus aureus in conditions classified elsewhere and of unspecified site 07/2007 right wrist. - PMH - PAST MEDICAL HISTORY OF normal color vision PAST SURGICAL HISTORY Procedure Laterality Date - INSERT INTRAUTERINE DEVICE 02/18/09 Mirena - PAST SURGICAL HISTORY OF 2016 precanerous cells from cervix FAMILY HISTORY Problem Relation Age of Onset - Lipids Mother - Thyroid Maternal Grandmother - Hypertension Maternal Grandfather - other (heart disease) Maternal Grandfather - Hypertension Paternal Grandfather SOCIAL HISTORY Social History Tobacco Use - Smoking status: Former Smoker Packs/day: 0.25 Years: 8.00 Pack years: 2.00 Types: Cigarettes Quit date: 10/17/2018 Years since quittin.2 - Smokeless tobacco: Never Used - Tobacco comment: dad smokes outside, pt currently trying to quit (09/11/2012); quit for a while then stress caused relapse. Substance Use Topics - Alcohol use: Yes Comment: Seldom - Drug use: No REVIEW OF SYSTEMS Abdomen: No abdominal pain, nausea, vomiting, diarrhea, or constipation. No bloating, early satiety, indigestion, or increased flatulence. Bladder: No dysuria, gross hematuria, urinary frequency, urinary urgency, or incontinence. Breast: No breast lumps, nipple d/c, overlying skin changes, redness or skin retraction. Allergies and current medication updated:Yes EXAM: There were no vitals taken for this visit. GENERAL: pleasant, female in no apparent distress HEENT: Normocephalic, atraumatic, mucus membranes moist and no lesions NECK: Supple, full range of motion, no adenopathy and thyroid normal DERMATOLOGY: Normal, without lesions, non-icteric and non-hirsute BREAST: soft, non-tender, symmetric, no dominant mass, normal nipple-areolar complex, no lymphadenopathy and no nipple discharge CHEST: Normal inspiratory effort ABDOMEN: soft, non-tender and no masses PELVIC: external genitalia normal, normal Bartholin's glands, urethra, [place]'s glands, no vulvar lesions, no cervical lesions, good vaginal support, physiologic discharge present, normal appearing perineal body and perianal region BIMANUAL: uterus normal size, shape and consistency, no adnexal masses and non-tender RECTOVAGINAL: deferred. NEURO: alert and oriented x3,exam grossly non-focal EXTREMITIES: normal ASSESSMENT/PLAN: 1) Health maintenance: Pap done with HPV. Mammogram starting age 40. Nutrition, exercise and routine health maintenance exams reviewed. Calcium/Vitamin D supplementation information provided. 2) Contraception: combined hormonal contraceptives. Contraceptive options reviewed and information provided. 3) STD screening: Declined STD check. 4) Follow up one year or sooner as needed 5) Pt to be schedule with doctor for paracervical block for IUD insertion. 6) Valium and cytotec ordered for procedure. Matthew Anand APRN.BASKET[employer]ALL ASSEMBLER [facility] Summary Purpose Family History No Family History Records FoundNo Family History Records FoundNo Family History Records FoundNo Family History Records Found Advance Directives No Advanced Directives Records FoundNo Advanced Directives Records FoundNo Advanced Directives Records FoundNo Advanced Directives Records Found Additional Source Comments INFORMATION SOURCE (unrecogn ized section and content) DATE CREATED AUTHOR AUTHOR'S ORGANIZ ATION 12/19/2021 [facility] DATE CREATED AUTHOR AUTHOR'S ORGANIZ ATION 02/26/2022 [facility] ([place]) DATE CREATED AUTHOR AUTHOR'S ORGANIZ ATION 05/30/2023 [facility] ([place]) FOR RECORDS PERTAINING TO PATIENTS WHO ARE OR HAVE BEEN ENROLLED IN A CHEMICAL DEPENDENCY/SUBSTANCEABUSE PROGRAM, SOME INFORMATION MAY BE OMITTED. This clinical summary was aggregated from multiple sources. Caution should be exercised in using it in the provision of clinical care. This summary normalizes information from multiple sources, and as a consequence, information in this document may materially change the coding, format and clinical context of patient data. In addition, data may be omitted in some cases. CLINICAL DECISIONS SHOULD BE BASED ON THE PRIMARY CLINICAL RECORDS. [employer] provides no warranty or guarantee of the accuracy or completeness of information in this document.
== END | disposition home or self-care (01) ==
LOC: OPUS 08:43
PROVIDERS: PCP Family Medicine; Referring Provider Family Medicine; Visit Provider Family Medicine
DX: N63.21 Unspecified lump in the left breast, upper outer quadrant (principal); Z12.31 Encounter for screening mammogram for malignant neoplasm of breast
CPT/HCPCS: 76642; 77062; 77063; 77066; G0279

== ENCOUNTER → 2024-06-27 | Outpatient (CLI) | payer OTHER, SELFPAY ==
[2024-07-03 15:09] LABS: HPV APTIMA, High Risk Negative (Negative)
== END | disposition home or self-care (01) ==
LOC: LABSPEC 17:26
PROVIDERS: PCP Family Medicine; Referring Provider Nurse Practitioner Family; Visit Provider Nurse Practitioner Family
DX: Z12.4 Encounter for screening for malignant neoplasm of cervix (principal)
CPT/HCPCS: 87624; 88175; G0145